=== PATIENT | female | born 1950 | race Caucasian/White ===

== ENCOUNTER → 2018-04-24 | Outpatient (CLI) | payer OTHER ==
[2018-04-24 11:11] LABS: BASOPHILS ABSOLUTE AUTO 0.05 K/mm3 (0.00-0.23); BASOPHILS PERCENT AUTO 1 % (0-2); EOSINOPHILS ABSOLUTE AUTO 0.29 K/mm3 (0.00-0.68); EOSINOPHILS PERCENT AUTO 5 % (0-6); Hematocrit 42.3 % (33.0-51.0); Hemoglobin 13.9 g/dL (11.5-16.0); IMMATURE GRAN ABSOLUTE AUTO 0.01 K/mm3 (0.00-0.10); IMMATURE GRAN PERCENT AUTO 0 % (0-1); LYMPHOCYTES ABSOLUTE AUTO 1.73 K/mm3 (0.84-5.20); LYMPHOCYTES PERCENT AUTO 27 % (21-46); MONOCYTES ABSOLUTE AUTO 0.61 K/mm3 (0.16-1.47); MONOCYTES PERCENT AUTO 10 % (4-13); Mean Corpuscular HGB 31.4 pg (26.0-34.0); Mean Corpuscular HGB Conc 32.9 g/dL (31.5-36.5); Mean Corpuscular Volume 96 fL (80-100); Mean Platelet Volume 8.5 fL (9.1-12.4); NEUTROPHILS ABSOLUTE AUTO 3.64 K/mm3 (1.96-9.15); NEUTROPHILS PERCENT AUTO 58 % (41-73); Platelet Count 362 K/mm3 (150-400); RDW Coefficient Variation 13.2 % (11.7-14.2); RDW Standard Deviation 47.6 fL (35.1-46.3); Red Blood Cell Count 4.43 M/mm3 (3.80-5.20); White Blood Cell Count 6.33 K/mm3 (4.00-11.30)
[2018-04-24 11:36] LABS: Alanine Aminotransfer (ALT/SGP 22 U/L (12-78); Albumin, Blood 3.7 g/dL (3.4-5.0); Alk Phos 74 U/L (50-136); Anion Gap 7 mmol/L (6-16); Aspartate Aminotrans (AST/SGOT 24 U/L (12-37); Bilirubin, Total 0.7 mg/dL (0.1-1.0); Blood Urea Nitrogen 13 mg/dL (8-24); Bun/Creatinine Ratio 15.9 (12.0-20.0); CHOL/HDL RATIO 3.3; CO2, Blood 28 mmol/L (21-32); Calcium, Blood 9.2 mg/dL (8.5-10.1); Chloride, Blood 106 mmol/L (98-108); Cholesterol 275 mg/dL (50-200); Creatinine, Blood 0.82 mg/dL (0.40-1.00); Globulin, Blood 3.7 g/dL (2.2-4.0); Glomerular Filtration Rate >60 (60-); Glucose, Blood 102 mg/dL (70-99); HDL Cholesterol 83 mg/dL (>39); Low Density Lipoprotein Chol 168 mg/dL (0-110); Potassium, Blood 4.6 mmol/L (3.5-5.5); Sodium, Blood 141 mmol/L (136-145); Total Protein, Blood 7.4 g/dL (6.4-8.2); Triglycerides 120 mg/dL (30-160); Very Low Density Lipoprot Chol 24 mg/dL (6-32)
== END | disposition home or self-care (01) ==
LOC: LAB 09:45 → LAB SHORT 09:45
PROVIDERS: Physician Assistant
DX: I10 Essential (primary) hypertension (principal)
CPT/HCPCS: 80053; 80061; 85025

== ENCOUNTER 2022-07-29 19:02 | Inpatient (IN) | payer OTHER ==
[~2022-07-29] VITALS: Ht 162.6 cm; Wt 52.5 kg
[2022-07-29 19:54] LABS: BASOPHILS ABSOLUTE AUTO 0.01 K/mm3 (0.00-0.23); BASOPHILS PERCENT AUTO 0 % (0-2); EOSINOPHILS ABSOLUTE AUTO 0.09 K/mm3 (0.00-0.68); EOSINOPHILS PERCENT AUTO 1 % (0-6); Hematocrit 44.5 % (33.0-51.0); Hemoglobin 14.1 g/dL (11.5-16.0); IMMATURE GRAN ABSOLUTE AUTO 0.05 K/mm3 (0.00-0.10); IMMATURE GRAN PERCENT AUTO 0 % (0-1); LYMPHOCYTES ABSOLUTE AUTO 0.37 K/mm3 (0.84-5.20); LYMPHOCYTES PERCENT AUTO 3 % (21-46); MONOCYTES ABSOLUTE AUTO 0.63 K/mm3 (0.16-1.47); MONOCYTES PERCENT AUTO 5 % (4-13); Mean Corpuscular HGB 28.8 pg (26.0-34.0); Mean Corpuscular HGB Conc 31.7 g/dL (31.5-36.5); Mean Corpuscular Volume 91 fL (80-100); Mean Platelet Volume 7.6 fL (9.1-12.4); NEUTROPHILS ABSOLUTE AUTO 11.18 K/mm3 (1.96-9.15); NEUTROPHILS PERCENT AUTO 91 % (41-73); Platelet Count 474 K/mm3 (150-400); RDW Standard Deviation 50.4 fL (35.1-46.3); White Blood Cell Count 12.33 K/mm3 (4.00-11.30)
[2022-07-29] MEDS ORDERED: CIPR500 PO (20:11)
[2022-07-29 20:12] LABS: Albumin, Blood 2.6 g/dL (3.4-5.0); Albumin/Globulin Ratio 0.9 (0.8-1.8); Bilirubin, Total 0.3 mg/dL (0.1-1.0); Bun/Creatinine Ratio 38.6 (12.0-20.0); Calcium, Blood 7.8 mg/dL (8.5-10.1); Creatinine, Blood 0.83 mg/dL (0.40-1.00); Potassium, Blood 3.8 mmol/L (3.5-5.5); Total Protein, Blood 5.6 g/dL (6.4-8.2)
--- NOTE | 2022-07-29 22:43 | NUR ---
CALLED TO GET REPORT FOR ER PT COMING TO RM 360. REPORT RECEIVED FROM LUKAS CRUZ RN AT 5129.
--- NOTE | 2022-07-29 23:00 | NUR ---
PT ARRIVED FROM ED VIA [facility] AT 2300. ASSISTANCE PROVIDED TRANSFERRING FROM [facility] TO [facility]. PT APPEARS TO BE A LITTLE UNSTEADY WALKING D/T BLE EDEMA. ON 2L VIA HI AT THIS TIME. PLEASANT AND COOPERATIVE. A/O. KNOWS LIMITATIONS. ORIENTED TO CALL LT SYSTEM, PT UNDERSTANDS TO USE CALL LT FOR NEEDS. DR VILLALOBOS SEE PT. WILL CONTINUE TO PROVIDE CARE T/O SHIFT.
--- NOTE | 2022-07-30 00:18 | NUR ---
SNACK GIVEN TO PT. CALL LT IN REACH.
--- NOTE | 2022-07-30 02:31 | NUR ---
PT RESTING QUIETLY. RESP EVEN ON 3L. CALL LT IN REACH.
--- NOTE | 2022-07-30 03:37 | NUR ---
PT RESTING QUIETLY. CALL LT IN REACH.
--- NOTE | 2022-07-30 04:00 | NUR ---
PT RESTING. CALL LT IN REACH. BED ALARM ON.
--- NOTE | 2022-07-30 04:44 | NUR ---
SHIFT SUMMARY: ED ADMIT AT 2300. A/O. ON 3L O2, BASELINE IS RA. SINUS RHYTHM IN THE 90'S ON TELE. NO COMPLAINTS OF CHEST PAIN. SOB GREATLY IMPROVED PER PT. ABLE TO TALK IN COMPLETE SENTENCES. NO NOTED SOB. MEDICATED FOR A HEADACHE X 1. IS A 1[place] TO [facility] [place] BEING UNSTEADY WHEN STANDING AND AMBULATING. PT UNDERSTANDS LIMITATIONS. BED ALARM HAS BEEN ON FOR PT SAFETY AND REMINDER TO USE CALL LT. WILL CONTINUE TO PROVIDE CARE UNTIL SHIFT REPORT TO ONCOMING NURSE.
--- NOTE | 2022-07-30 06:17 | NUR ---
RESTING WELL. CALL LT IN REACH.
[2022-07-30 06:56] LABS: BASOPHILS ABSOLUTE AUTO 0.01 K/mm3 (0.00-0.23); BASOPHILS PERCENT AUTO 0 % (0-2); EOSINOPHILS ABSOLUTE AUTO 0.03 K/mm3 (0.00-0.68); EOSINOPHILS PERCENT AUTO 0 % (0-6); Hematocrit 43.5 % (33.0-51.0); Hemoglobin 13.8 g/dL (11.5-16.0); IMMATURE GRAN ABSOLUTE AUTO 0.05 K/mm3 (0.00-0.10); IMMATURE GRAN PERCENT AUTO 1 % (0-1); LYMPHOCYTES ABSOLUTE AUTO 0.76 K/mm3 (0.84-5.20); LYMPHOCYTES PERCENT AUTO 7 % (21-46); MONOCYTES ABSOLUTE AUTO 1.05 K/mm3 (0.16-1.47); MONOCYTES PERCENT AUTO 10 % (4-13); Mean Corpuscular HGB 28.8 pg (26.0-34.0); Mean Corpuscular HGB Conc 31.7 g/dL (31.5-36.5); Mean Corpuscular Volume 91 fL (80-100); NEUTROPHILS ABSOLUTE AUTO 8.89 K/mm3 (1.96-9.15); NEUTROPHILS PERCENT AUTO 82 % (41-73); Platelet Count 470 K/mm3 (150-400); RDW Coefficient Variation 14.9 % (11.7-14.2); RDW Standard Deviation 49.7 fL (35.1-46.3); White Blood Cell Count 10.79 K/mm3 (4.00-11.30)
[2022-07-30 07:20] LABS: Albumin, Blood 2.4 g/dL (3.4-5.0); Albumin/Globulin Ratio 0.8 (0.8-1.8); Bilirubin, Total 0.4 mg/dL (0.1-1.0); Bun/Creatinine Ratio 38.9 (12.0-20.0); Calcium, Blood 7.6 mg/dL (8.5-10.1); Creatinine, Blood 0.8 mg/dL (0.40-1.00); Globulin, Blood 2.9 g/dL (2.2-4.0); Potassium, Blood 3.8 mmol/L (3.5-5.5); Total Protein, Blood 5.3 g/dL (6.4-8.2)
[2022-07-30 07:35] LABS: CPK Creatine Kinase 126 U/L (26-193)
[2022-07-30 15:12] LABS: CPK Creatine Kinase 130 U/L (26-193)
--- NOTE | 2022-07-30 17:31 | NUR ---
SHIFT SUMMARY NO ACUTE CHANGES DURING SHIFT. PT ALERT AND ORIENTED, CALLS APPROPRIATELY. PT REMAINS ON 3L NC, SPO2 >90%. PRN NEBS ORDERED FOR SOB, ADMINSITERED BY RT WITH POSITIVE RESULTS. PT TRANSITIONED TO PO LASIX AND STEROIDS. ECHO COMPLETED. WILL CONTINUE TO MONITOR. CALL LIGHT WITHIN REACH.
--- NOTE | 2022-07-31 04:50 | NUR ---
SHIFT SUMMARY PATIENT DENIES PAIN, NAUSEA, AND SHORTNESS OF BREATH. PATIENT IS A SBA TO THE BATHROOM. PATIENT IS A&O X4, CALLS APPROPRIATELY. PATIENT ON 3L VIA N/C. MAINTAINING SATS ABOVE 90%. PATIENT SLEPT MOST OF SHIFT. PATIENT IS VERY PLEASANT AND COOPERATIVE WITH CARE.
[2022-07-31 04:51] LABS: BASOPHILS ABSOLUTE AUTO 0.02 K/mm3 (0.00-0.23); BASOPHILS PERCENT AUTO 0 % (0-2); EOSINOPHILS ABSOLUTE AUTO 0.45 K/mm3 (0.00-0.68); EOSINOPHILS PERCENT AUTO 4 % (0-6); Hematocrit 43.8 % (33.0-51.0); Hemoglobin 13.5 g/dL (11.5-16.0); IMMATURE GRAN ABSOLUTE AUTO 0.03 K/mm3 (0.00-0.10); IMMATURE GRAN PERCENT AUTO 0 % (0-1); LYMPHOCYTES ABSOLUTE AUTO 1.24 K/mm3 (0.84-5.20); LYMPHOCYTES PERCENT AUTO 11 % (21-46); MONOCYTES ABSOLUTE AUTO 1.43 K/mm3 (0.16-1.47); MONOCYTES PERCENT AUTO 13 % (4-13); Mean Corpuscular HGB 28.5 pg (26.0-34.0); Mean Corpuscular HGB Conc 30.8 g/dL (31.5-36.5); Mean Corpuscular Volume 93 fL (80-100); Mean Platelet Volume 7.9 fL (9.1-12.4); NEUTROPHILS ABSOLUTE AUTO 7.85 K/mm3 (1.96-9.15); NEUTROPHILS PERCENT AUTO 71 % (41-73); Platelet Count 403 K/mm3 (150-400); RDW Coefficient Variation 14.8 % (11.7-14.2); RDW Standard Deviation 50.8 fL (35.1-46.3); Red Blood Cell Count 4.73 M/mm3 (3.80-5.20); White Blood Cell Count 11.02 K/mm3 (4.00-11.30)
[2022-07-31 05:07] LABS: Calcium, Blood 7.7 mg/dL (8.5-10.1); Creatinine, Blood 0.8 mg/dL (0.40-1.00); Potassium, Blood 3.9 mmol/L (3.5-5.5)
--- NOTE | 2022-07-31 17:54 | NUR ---
SHIFT SUMMARY NO ACUTE CHANGES DURING SHIFT. PT ALERT AND ORIENTED, CALLS APPROPRIATELY. PT REMAINS ON 3L NC. UP OOB TO AMBULATE HALLS TODAY PER MD ORDER, PT REMAINS SBA. PT ON PO DIURETICS. WILL CONTINUE TO MONITOR. CALL LIGHT WITHIN REACH.
--- NOTE | 2022-08-01 04:25 | NUR ---
AGRICULTURAL PRODUCE PACKER SUMMARY BP WAS ELEVATED AT SHIFT COMMENCE, BUT HAS TRENDED DOWN TO WNL. OTHERWISE VSS. UP TO BATHROOM WITH ASSIST A FEW TIMES. OTHERWISE HAS BEEN RESTING QUIETLY WITH FEW INTERRUPTIONS. CALL LIGHT IN REACH. O2 PER NC. MED TELE SR. EDEMA REMAINS OF BLE. WILL CONTINUE TO MONITOR.
[2022-08-01 10:00] LABS: Bun/Creatinine Ratio 37.7 (12.0-20.0); Calcium, Blood 8.4 mg/dL (8.5-10.1); Creatinine, Blood 0.58 mg/dL (0.40-1.00); Potassium, Blood 3.6 mmol/L (3.5-5.5)
[2022-08-01] MEDS ORDERED: Amlodipine Bes2.5 MG PO (13:27)
[2022-08-01] MEDS ORDERED: BUME1 PO (13:28)
[2022-08-01] MEDS ORDERED: FLUTICASONE-SA1 EAC1 INH (13:29)
[2022-08-01] MEDS ORDERED: METO25 PO (13:31)
[2022-08-01] MEDS ORDERED: PRED20 PO (13:38)
[2022-08-01] MEDS ORDERED: Chantix1 MG PO (13:40)
[2022-08-01] MEDS ORDERED: ALBU90OI INH (13:42)
[2022-08-01] MEDS ORDERED: POTA10T PO (13:42)
--- NOTE | 2022-08-01 17:11 | NUR ---
PATIENT DISCHARGED TO HER PARENT'S HOME ACCOMPANIED BY HER SPOUSE/SO. IV SALINE LOCK AND TELEMETRY REMOVED WITHOUT INCIDENT. VERBALIZED UNDERSTANDING OF D/C INSTRUCTIONS. MATTHEW DELIVERED PORTABLE O2 TANK TO THE ROOM AND CONCENTRATOR TO BE DELIVERED TO HER PARENT'S HOME, WHERE SHE WILL BE STAYING UNTIL HER HOME IS "READY." OFF UNIT VIA W/C AT 1625. NO BELONGINGS LEFT BEHIND IN ROOM.
== END 2022-08-01 16:25 | disposition home health service (06) | DRG 291 ==
LOC: ER 19:02 → MEDS 22:57
PROVIDERS: Emergency Medicine; Internal Medicine; ADMIT Internal Medicine
DX: I50.31 Acute diastolic (congestive) heart failure (principal); J96.01 Acute respiratory failure with hypoxia; R64 Cachexia; J44.1 Chronic obstructive pulmonary disease with (acute) exacerbation; E87.1 Hypo-osmolality and hyponatremia; F17.210 Nicotine dependence, cigarettes, uncomplicated; I34.0 Nonrheumatic mitral (valve) insufficiency; I27.20 Pulmonary hypertension, unspecified; Z79.2 Long term (current) use of antibiotics
CPT/HCPCS: 36415; 71045; 80048; 80053; 82550; 83880; 84484; 85025; 93005; 93010; 93306; 94640; 94664; 94760; 94761; 96374; 99285-25; A9270; J1650; J1940; J7512

== ENCOUNTER → 2023-05-25 | Outpatient (CLI) | payer OTHER ==
[~2023-05-25] MED LIST: ALBU90OI INH; Amlodipine Bes2.5 MG PO; BUME1 PO; CIPR500 PO; Chantix1 MG PO; FLUTICASONE-SA1 EAC1 INH; METO25 PO; POTA10T PO; PRED20 PO
[2023-05-25 19:30] LABS: BASOPHILS ABSOLUTE AUTO 0.06 K/mm3 (0.00-0.23); BASOPHILS PERCENT AUTO 1 % (0-2); EOSINOPHILS ABSOLUTE AUTO 0.28 K/mm3 (0.00-0.68); EOSINOPHILS PERCENT AUTO 4 % (0-6); Hematocrit 43.8 % (33.0-51.0); Hemoglobin 14.3 g/dL (11.5-16.0); IMMATURE GRAN ABSOLUTE AUTO 0.02 K/mm3 (0.00-0.10); IMMATURE GRAN PERCENT AUTO 0 % (0-1); LYMPHOCYTES PERCENT AUTO 18 % (21-46); MONOCYTES ABSOLUTE AUTO 0.65 K/mm3 (0.16-1.47); MONOCYTES PERCENT AUTO 8 % (4-13); Mean Corpuscular HGB 30.2 pg (26.0-34.0); Mean Corpuscular HGB Conc 32.6 g/dL (31.5-36.5); Mean Corpuscular Volume 93 fL (80-100); Mean Platelet Volume 9.2 fL (9.1-12.4); NEUTROPHILS ABSOLUTE AUTO 5.36 K/mm3 (1.96-9.15); NEUTROPHILS PERCENT AUTO 69 % (41-73); Platelet Count 362 K/mm3 (150-400); RDW Coefficient Variation 13.7 % (11.7-14.2); RDW Standard Deviation 46.9 fL (35.1-46.3); Red Blood Cell Count 4.73 M/mm3 (3.80-5.20); White Blood Cell Count 7.77 K/mm3 (4.00-11.30)
[2023-05-25 19:58] LABS: Thyroxine (T4) 11.8 ug/dL (4.8-13.9)
[2023-05-25 20:05] LABS: Albumin, Blood 4.1 g/dL (3.4-5.0); Bilirubin, Total 0.5 mg/dL (0.1-1.0); Bun/Creatinine Ratio 22.8 (12.0-20.0); Calcium, Blood 9.8 mg/dL (8.5-10.1); Creatinine, Blood 0.92 mg/dL (0.40-1.00); Potassium, Blood 4.4 mmol/L (3.5-5.5); Thyroid Stimulating Hormone 2.45 uIU/mL (0.360-4.800); Total Protein, Blood 8.1 g/dL (6.4-8.2)
== END | disposition home or self-care (01) ==
LOC: LAB SHORT 15:40 → LAB 15:40
PROVIDERS: Family Medicine
DX: E11.9 Type 2 diabetes mellitus without complications (principal); E78.2 Mixed hyperlipidemia; I10 Essential (primary) hypertension
CPT/HCPCS: 80053; 84436; 84443; 85025

== ENCOUNTER 2024-05-15 17:42 | Inpatient (IN) | payer OTHER ==
[~2024-05-15] VITALS: Ht 170.2 cm; Wt 42.8 kg
[2024-05-15] MEDS ORDERED: MethylPREDNISolone Sod Succ 125 MG Vial IV ONE (18:05)
[2024-05-15] MEDS ORDERED: Ipratropium/Albuterol SulF 2.5-0.5MG/3 ML Amp INH ONE (18:05)
[2024-05-15 18:07] LABS: Bicarbonate Venous 28.9 mmol/L (24.0-30.0); PCO2 Venous 60.6 mmHg (38-42); pH Blood Venous 7.34 (7.34-7.37)
[2024-05-15 18:11] LABS: Hematocrit 41.3 % (33.0-51.0); Mean Corpuscular HGB 30.3 pg (26.0-34.0); Mean Corpuscular HGB Conc 31.5 g/dL (31.5-36.5); Mean Corpuscular Volume 96 fL (80-100); Mean Platelet Volume 8.8 fL (9.1-12.4); Platelet Count 261 K/mm3 (150-400); RDW Coefficient Variation 14.7 % (11.7-14.2); RDW Standard Deviation 51.7 fL (35.1-46.3); Red Blood Cell Count 4.29 M/mm3 (3.80-5.20); White Blood Cell Count 16.36 K/mm3 (4.00-11.30)
[2024-05-15 18:33] LABS: Alanine Aminotransfer (ALT/SGP 20 U/L (12-78); Albumin, Blood 2.4 g/dL (3.4-5.0); Albumin/Globulin Ratio 0.6 (0.8-1.8); Alk Phos 79 U/L (50-136); Anion Gap 12 mmol/L (3-11); Aspartate Aminotrans (AST/SGOT 32 U/L (12-37); Bilirubin, Total 0.6 mg/dL (0.1-1.0); Blood Urea Nitrogen 43 mg/dL (8-24); Bun/Creatinine Ratio 41.7 (12.0-20.0); CO2, Blood 32 mmol/L (21-32); Calcium, Blood 8.8 mg/dL (8.5-10.1); Chloride, Blood 89 mmol/L (98-108); Creatinine, Blood 1.03 mg/dL (0.40-1.00); Globulin, Blood 4.3 g/dL (2.2-4.0); Glomerular Filtration Rate 58 (60-); Glucose, Blood 67 mg/dL (70-99); Potassium, Blood 5.5 mmol/L (3.5-5.5); Sodium, Blood 127 mmol/L (136-145); Total Protein, Blood 6.7 g/dL (6.4-8.2)
[2024-05-15 18:34] LABS: BAND PERCENT MAN 33 % (0-8); BASOPHILS PERCENT MAN 0 % (0-2); EOSINOPHILS PERCENT MAN 0 % (0-6); LYMPHOCYTES ABSOLUTE MAN 0.32 K/mm3 (0.84-5.20); LYMPHOCYTES PERCENT MAN 2 % (21-46); METAMYELOCYTE ABSOLUTE MAN 0.98 K/mm3 (0.00-0.00); METAMYELOCYTE PERCENT MAN 6 % (0-0); MONOCYTES ABSOLUTE MAN 1.47 K/mm3 (0.16-1.47); MONOCYTES PERCENT MAN 9 % (4-13); NEUTROPHILS ABSOLUTE MAN 13.57 K/mm3 (1.96-9.15); SEG NEUTROPHILS PERCENT MAN 50 % (41-73); TOTAL CELLS COUNTED 100
[2024-05-15] MEDS ORDERED: PAXLOVID 150-11 EAC1 (18:35)
[2024-05-15] MEDS ORDERED: Amlodipine Bes2.5 MG (18:37)
[2024-05-15] MEDS ORDERED: Remdesivir (EUA) 200 MG in NS 250 ML IV ONE (18:45)
[2024-05-15] MEDS ORDERED: Albuterol 2.5 MG/3 ML VIAL INH SCH (18:55)
[2024-05-15] MEDS ORDERED: Acetaminophen 325 MG TABLET PO PRN (19:45)
[2024-05-15] MEDS ORDERED: Albuterol 2.5 MG/3 ML VIAL INH PRN (19:50)
[2024-05-15] MEDS ORDERED: Ondansetron HCl 2 MG / ML 2ML Vial IV PRN (19:50)
[2024-05-15] MEDS ORDERED: Ipratropium/Albuterol SulF 2.5-0.5MG/3 ML Amp INH SCH (19:50)
[2024-05-15] MEDS ORDERED: NS 1,000 ML IV SCH (19:50)
[2024-05-15] MEDS ORDERED: Azithromycin 500 MG in NS 250 ML IV SCH (20:00)
[2024-05-15 22:36] VITALS: BP 118/67
[2024-05-15 23:44] VITALS: BP 129/71
[2024-05-15 23:44] LABS: Bicarbonate Venous 25.1 mmol/L (24.0-30.0); PCO2 Venous 89.8 mmHg (38-42); pH Blood Venous 7.17 (7.34-7.37)
[2024-05-15] MEDS ORDERED: BUDESONIDE1 MG/2 M1 INH (23:51)
[2024-05-16] VITALS (67 sets, daily range): BP systolic 104–167; BP diastolic 64–131
--- NOTE | 2024-05-16 00:05 | NUR ---
ARRIVAL TO PCU AFTER RECEIVING REPORT FROM ED RN, PATIENT TRANSFERRED TO PCU AT APPROX 2230. PATIENT TRANSFERRED TO BED VIA SLIDER SHEET. PATIENT ALERT AND ORIENTED X4. COMMUNICATING NEEDS EFFECTIVELY. CAN BE FORGETFUL - ESPECIALLY REGARDING HX. DIFFICULTY RECALLING EVENTS IN ED. DAUGHTER AT BEDSIDE. TELEMETRY SHOWING SINUS BBB 80s. BP STABLE. DENIES CHEST PAIN, PRESSURE. ARRIVED ON BIPAP 12/10 50%. TOLERATING WELL, SATs >90%. RR 20s-30s. REQUESTING BREAK FROM BIPAP TO EAT. PLACED ON 7L VIA HI FLOW NC, SATs 92-94%. TOLERATED SHORT BREAK FROM BIPAP TO EAT A SNACK AND ANSWER ADMIT INFORMATION. REPORTS THAT SHE IS AMBULATORY AT BASELINE, BEDREST AT THIS TIME D/T OXYGEN DEMAND. PUREWICK AND ATTENDS PLACED. MEPIPLEX DRESSING PLACED OVER BONY COCCYX TO PREVENT SKIN BREAKDOWN. REPEAT VBG OBTAINED WHILE THIS RN ON BREAK. CRITICAL PH 7.17 - HUSAM GIFFORD RN NOTIFIED MD. THIS RN TO BEDSIDE. PATIENT ON BIPAP 12/10 50%. RT TO BEDSIDE TO ADJUST SETTINGS. PATIENT INCREASINGLY LETHARGIC, TACHYPNEIC, RR 30s-40s. SATs >90%. RT CODEY EXPRESSING CONCERNS FOR MANAGING RESPIRATORY STATUS ON BIPAP. INCREASED SECRETIONS NOTED. MD NIX CONTACTED. RECEIVED ORDER FOR ICU TRANSFER. DAUGHTER AT BEDSIDE - USER EXPERIENCE TEAM LEAD LAURA PROVIDED UPDATE. PATIENT EXPRESSING DESIRE TO REMAIN FULL CODE. REPORT GIVEN TO REGASIFICATION PLANT OPERATOR. MD NIX TO BEDSIDE TO ASSESS PATIENT. RECEIVED ORDER FOR REPEAT VBG AT 0300 AND FOR SCOPOLAMINE PATCH TO MANAGE SECRETIONS. PATIENT TRANSFERRED TO ICU AT APPROX 0030.
[2024-05-16] MEDS ORDERED: Scopolamine Hydrobromide Patch TD SCH (00:25)
--- NOTE | 2024-05-16 01:07 | NUR ---
TRANSFER TO ICU PT TRANSFERED TO ICU DUE TO INCREASE IN O2 DEMANDS AND POOR VBG RESULTS. SHE IS A/O X4 BUT STATES THAT SHE IS "TIRED". SHE IN ON BIPAP WITH SETTINGS 16/7, FIO2 40%, RR MID TO HIGH 20'S, AND Vt LABILE; WHEN STIMULATED Vt IS 400-1000, WHILE RESTINGS RANGES FROM 50-300'S, SPO2 LABILE FROM 90-95%. GARCIA PLACED FOR CRITICAL I&O'S. DAUGHTER JEROMY AT BEDSIDE.
[2024-05-16 01:23] LABS: Bilirubin, Urine Neg (Neg); Blood, Urine Neg (Neg); Glucose Qualitative, Urine Neg (Neg); Ketones, Urine Neg (Neg); Leukocyte Esterase, Urine Neg (Neg); Nitrite, Urine Neg (Neg); Protein, Urine 3+ (Neg); Specific Gravity, Urine 1.025 (1.003-1.022); Urobilinogen, Urine NORM (Normal)
[2024-05-16 01:28] LABS: Appearance, Urine Clear (Clear); Color, Urine Yellow (P-Yellow)
[2024-05-16 01:29] LABS: Amorphous Light (0-Heavy); Bacteria Few /hpf; Hyaline Casts 0-2 /lpf (0-2); Red Blood Cells, Urine 0-2 /hpf (0-2); Squamous Epithelial Cells Few /hpf (Few); White Blood Cells, Urine 0-2 /hpf (0-5)
[2024-05-16 01:45] LABS: PCO2 Arterial 86.5 mmHg (35-45); PO2 Arterial 78.8 mmHg (80-100); pH Blood Arterial 7.18 (7.35-7.45)
--- NOTE | 2024-05-16 02:00 | NUR ---
UPDATE CALL MADE TO DR NIX REGARDING DRECREASE IN Vt WHILE RESTING FOLLOWED BY DESATING TO THE MID 80'S. ABG OBTAINED AND BIPAP SETTINGS CHANGED AFTERWARDS. DR NIX AT BEDSIDE TO EVAL. WILL FOLLOW UP WITH VBG AND MORNING LABS AT 0400.
[2024-05-16 04:07] LABS: Hematocrit 42.3 % (33.0-51.0); Hemoglobin 12.9 g/dL (11.5-16.0); Mean Corpuscular HGB 30.1 pg (26.0-34.0); Mean Corpuscular HGB Conc 30.5 g/dL (31.5-36.5); Mean Corpuscular Volume 99 fL (80-100); Mean Platelet Volume 8.9 fL (9.1-12.4); Platelet Count 259 K/mm3 (150-400); RDW Coefficient Variation 14.8 % (11.7-14.2); RDW Standard Deviation 53.9 fL (35.1-46.3); Red Blood Cell Count 4.29 M/mm3 (3.80-5.20); White Blood Cell Count 12.72 K/mm3 (4.00-11.30)
[2024-05-16 04:11] LABS: Base Excess Venous 4.5 mmol/L; Bicarbonate Venous 25.7 mmol/L (24.0-30.0); pH Blood Venous 7.23 (7.34-7.37)
[2024-05-16 04:23] LABS: Bun/Creatinine Ratio 38.6 (12.0-20.0); Calcium, Blood 8.5 mg/dL (8.5-10.1); Creatinine, Blood 1.45 mg/dL (0.40-1.00); Potassium, Blood 4.9 mmol/L (3.5-5.5)
--- NOTE | 2024-05-16 06:31 | NUR ---
END OF SHIFT SUMMARY NO CHANGES SINCE LAST NOTE; SHE WAS ABLE TO SLEEP FOR A FEW HOURS. CONT TO BE ORIENTED X4 AND APPROPRIATLY INTERACTING WITH STAFF. BIPAP SETTINGS 24/8, FIO2 45%, AND BACK UP RATE OF 26, RR MID 20'S; TIGHT LS T/O ALL FREEMAN. AFEBRILE. HR 70'S. SBP 110-150'S. GARCIA IN PLACE WITH SMALL AMOUNT OF OUTPUT. NS INFUSING AT 75ML/HR. DAUGHTER JEROMY AT BEDSIDE AND HELPFUL. WILL REPORT TO AM RN WHEN AVAILABLE.
[2024-05-16] MEDS ORDERED: AmLODIPine Besylate 5 MG Tab PO SCH (09:00)
[2024-05-16] MEDS ORDERED: Enoxaparin 40 MG/0.4 ML SYR SC SCH (09:00)
[2024-05-16] MEDS ORDERED: NIRMATRELVIR PO SCH (11:02)
[2024-05-16] MEDS ORDERED: RITONAVIR 100 MG PO SCH (11:05)
[2024-05-16] MEDS ORDERED: Nicotine 21 MG PATCH TOP SCH (11:40)
[2024-05-16] MEDS ORDERED: Remdesivir (EUA) 100 MG in NS 250 ML IV SCH (12:00)
--- NOTE | 2024-05-16 13:24 | NUR ---
Spiritual care visit conducted. I talk with patient's dtr, Geoavnna, outside of the patient's room. Geovanna explains about the complexities of her mother's health and how the virus has made things very serious. She states that she is worried but also she remains hopefully optimistic. I later visit the patient in her room and she explains about her inability to talk but she welcomes prayer which I gladly provided. Both patient and Geovanna showed signs of greater peace. I will continue to remain available.
[2024-05-16] MEDS ORDERED: MethylPREDNISolone Sod Succ 125 MG Vial IV SCH ×2 (21:00)
[2024-05-17] VITALS (33 sets, daily range): BP systolic 111–178; BP diastolic 70–106
[2024-05-17 03:18] LABS: Hematocrit 37.3 % (33.0-51.0); Hemoglobin 12.1 g/dL (11.5-16.0); Mean Corpuscular HGB Conc 32.4 g/dL (31.5-36.5); Mean Platelet Volume 8.8 fL (9.1-12.4); Platelet Count 264 K/mm3 (150-400); RDW Coefficient Variation 14.7 % (11.7-14.2); RDW Standard Deviation 50.4 fL (35.1-46.3); Red Blood Cell Count 4.03 M/mm3 (3.80-5.20)
[2024-05-17] MEDS ORDERED: HydrALAZINE HCl 20 MG / ML 1ML Vial IV PRN (03:20)
[2024-05-17 03:21] LABS: Mean Corpuscular Volume 93 fL (80-100)
[2024-05-17 03:40] LABS: Bun/Creatinine Ratio 53.1 (12.0-20.0); Calcium, Blood 8.4 mg/dL (8.5-10.1); Creatinine, Blood 1.28 mg/dL (0.40-1.00); Magnesium, Blood 2.2 mg/dL (1.6-2.4); Phosphorus, Blood 3.7 mg/dL (2.5-4.9); Potassium, Blood 5.2 mmol/L (3.5-5.5)
[2024-05-17 03:43] LABS: BAND PERCENT MAN 17 % (0-8); BASOPHILS PERCENT MAN 0 % (0-2); EOSINOPHILS ABSOLUTE MAN 0.17 K/mm3 (0.00-0.68); EOSINOPHILS PERCENT MAN 2 % (0-6); LYMPHOCYTES ABSOLUTE MAN 0.25 K/mm3 (0.84-5.20); LYMPHOCYTES PERCENT MAN 3 % (21-46); METAMYELOCYTE ABSOLUTE MAN 0.34 K/mm3 (0.00-0.00); METAMYELOCYTE PERCENT MAN 4 % (0-0); MONOCYTES ABSOLUTE MAN 0.42 K/mm3 (0.16-1.47); MONOCYTES PERCENT MAN 5 % (4-13); NEUTROPHILS ABSOLUTE MAN 7.31 K/mm3 (1.96-9.15); SEG NEUTROPHILS PERCENT MAN 69 % (41-73); TOTAL CELLS COUNTED 100
--- NOTE | 2024-05-17 06:29 | NUR ---
PATIENT MENTATION IS IMPROVING. MORE ALERT. A&O X4. PATIENT HAS BEEN SINUS WITH A BBB. PATIETN DID HAVE SOME HYPERTENSION OVERNIGHT DUE TO PATIENT NOT BEEN ABLE TO TAKE PO BP MEDS EARLY IN THE DAY SHIFT DUE TO RISK OF ASPIRATION. PRN NOW ORDERED FOR SBP >160, ONE DOSE GIVEN OVERNIGHT ALONG WITH DOSE OF NORVASC. SBP HAVE BEEN 140-160S. PATIENT IS ON BIPAP WITH SETTING OF 22/8 WITH FIO2 OF 35%. PATIENT TOLERATED THIS WELL OVERNIGHT. URINE OUTPUT DECREASED WITH AN OUT OF 30-40CC AN HOUR. PATIENT EXPRESSED CONCERNS OF NUTRITION. EXPLAIN TO PATIENT THE CONCERNS OF HER RESPIRATORY STATUS. HOPEFULLY WE CAN GET PATIENT SOME FOOD TODAY.
[2024-05-17] MEDS ORDERED: Enoxaparin 30 MG/0.3 ML SYR SC SCH (09:00)
--- NOTE | 2024-05-17 12:25 | NUR ---
REASSESSMENT PT HAS BEEN ALERT AND ORIENTED THROUGHOUT THE MORNING. PT SWITCHED TO AIRVO THIS MORNING AND PT TOLERATED FOR ABOUT 90 MINUTES BEFORE BEING SWITCHED BACK TO BIPAP IN ORDER TO WORK WITH PHYSICAL THERAPY. PT BACK ON AIR VO NOW AND IS TOLERATING IT WELL. WORK OF BREATHING IS EASY ENOUGH THAT SHE HAS BEEN ABLE TO SIP ON ENSURE DRINKS WITHOUT ANY SIGNS OF ASPIRATION. LUNGS STILL HAVE SOME EXPIRATORY WHEEZES. SR IN THE 80S, SBP IN THE 140S. GARCIA DRAINING CL YELLOW URINE. PT DAUGHTERS HAVE BEEN AT THE BEDSIDE AND WERE UPDATED BY DR. DOUGHERTY ON HIS ROUNDS.
[2024-05-17] MEDS ORDERED: Multivitamins 1 Tab PO SCH (14:20)
[2024-05-17] MEDS ORDERED: Thiamine HCl 100 MG Tab PO SCH (14:20)
--- NOTE | 2024-05-17 16:02 | NUR ---
Spiritual care visit conducted. Patient is lying in bed and alert. She tells me about her family unit complications, her sister being housed at [facility], and her strong belief in God. I provided therapeutic listening and prayer. Patient is voices gratefulness for the spiritual care visit and displays evidence of increased hope and peace.
[2024-05-17] MEDS ORDERED: Nystatin 100,000 Unit/ML Susp 5 ML UDC SS SCH (17:00)
--- NOTE | 2024-05-17 17:19 | NUR ---
SHIFT SUMMARY PT HAS REMAINED ON THE AIRVO THROUGHOUT THE AFTERNOON AND HAS BEEN ALERT AND ORIENTED. HER LUNGS STILL HAVE AN EXPIRATORY WHEEZE. PT DENIES DYSPNEA. PT GIVEN FULL LIQUID TRAY FOR DINNER AND IS EATING WITHOUT DIFFICULTY. PT IS FOLLOWING DIRECTION TO EAT SLOWLY AND PAUSE IF SHE FEELS SHORT OF BREATH. CONTINUES IN SR, SBP IN THE 140S. GARCIA DRAINING CL YELLOW URINE. PT'S AMY STAYED IN ROOM WITH PT FOR MOST OF THE DAY AND WAS UPDATED THROUGHOUT.
[2024-05-18] VITALS (11 sets, daily range): BP systolic 117–156; BP diastolic 81–94
[2024-05-18 03:42] LABS: Hematocrit 34.2 % (33.0-51.0); Hemoglobin 11.1 g/dL (11.5-16.0); Mean Corpuscular HGB 29.9 pg (26.0-34.0); Mean Corpuscular HGB Conc 32.5 g/dL (31.5-36.5); Mean Corpuscular Volume 92 fL (80-100); Mean Platelet Volume 8.9 fL (9.1-12.4); Platelet Count 261 K/mm3 (150-400); RDW Standard Deviation 51.2 fL (35.1-46.3); Red Blood Cell Count 3.71 M/mm3 (3.80-5.20)
[2024-05-18 04:02] LABS: Bun/Creatinine Ratio 61.5 (12.0-20.0); Calcium, Blood 8.1 mg/dL (8.5-10.1); Creatinine, Blood 0.78 mg/dL (0.40-1.00); Phosphorus, Blood 2.4 mg/dL (2.5-4.9)
[2024-05-18 04:11] LABS: BASOPHILS PERCENT MAN 0 % (0-2); EOSINOPHILS PERCENT MAN 0 % (0-6); PLASMA CELL ABSOLUTE MAN 0.04 K/mm3 (0.00-0.00); PLASMA CELLS PERCENT MAN 1 % (0-0); SEG NEUTROPHILS PERCENT MAN 66 % (41-73); TOTAL CELLS COUNTED 100
[2024-05-18 04:27] LABS: BAND PERCENT MAN 21 % (0-8); LYMPHOCYTES % ATYPICAL MANUAL 2 % (0-0); LYMPHOCYTES ABSOLUTE MAN 0.25 K/mm3 (0.84-5.20); LYMPHOCYTES PERCENT MAN 4 % (21-46); METAMYELOCYTE ABSOLUTE MAN 0.04 K/mm3 (0.00-0.00); METAMYELOCYTE PERCENT MAN 1 % (0-0); MONOCYTES ABSOLUTE MAN 0.21 K/mm3 (0.16-1.47); MONOCYTES PERCENT MAN 5 % (4-13); NEUTROPHILS ABSOLUTE MAN 3.74 K/mm3 (1.96-9.15)
--- NOTE | 2024-05-18 06:11 | NUR ---
SHIFT SUMMARY: NO ACUTE CHANGES OVERNIGHT; VSS THROUGHOUT THE SHIFT. PT ON BIPAP FOR MAJORITY OF THE NIGHT WITH SETTINGS 18/10, 35 %; SWITCHED OVER TO AIRVO EARLY THIS MORNING WITH SETTINGS 60L 40%. PT DENIES SOB, LUNG CLEAR WITH DIM BASES AND SPO2 94. SR WITH HR 80'S, SBP 130'S AND PT DENIES CHEST PAIN AT THIS TIME. GARCIA PATENT AND DRAINING TO GRAVITY. PT TOLERATING PO INTAKE AT THIS TIME. PT WAS ABLE TO SLEEP FOR MAJORITY OF SHIFT. BED LOWERED, CALL LIGHT IN REACH.
--- NOTE | 2024-05-18 10:41 | NUR ---
Spiritual Care Visit. Pt. is awake in bed and welcomes my visit. Facilitated a medical update and this pouch maker verbalized that I an visiting at the request of Ring Conductor Tim. Pt. is pleasant and verbalized that "she could use all the prayers we could throw her way." Prayed with Pt. Pt. verbalized gratitdue for the spiritual care visit.
--- NOTE | 2024-05-18 14:07 | NUR ---
ARRIVAL TO PCU PT ARRIVED TO PCU AT 1345 VIA HOSPITAL BED. PT ON BIPAP FOR TRNAFER AND SWITCHED TO AIRVO BY RT ONCE SETTLED IN ROOM. PT SLID FROM ICU BED TO PCU BED VIA 3 STAFF MEMBERS. MEPILEX REPLACED WHILE ASSESSING SKIN, MEPILEX IN PLACE JUST FOR BARRIER PT IS CACHECTIC. PT A/OX4 AND COOPERATIVE. PT ORIENTED TO ROOM.
--- NOTE | 2024-05-18 17:45 | NUR ---
SHIFT SUMMARY PT A/OX4 SINCE ARRIVAL TO UNIT. PT REMAINS ON AIRVO 60L 40% WITH SATS IN THE LOW 90'S. NO REPORT OF SOB. RR IN LOW 20'S. PULSE STABLE IN THE 80-90'S. STABLE BP'S. NO REPORT OF CHEST PAIN/PRESSURE SINCE ARRIVING TO UNIT. PT DIET ADVANCED TO REG DIET, PT TOLERATING WELL.
[2024-05-19] VITALS (7 sets, daily range): BP systolic 122–148; BP diastolic 84–94
--- NOTE | 2024-05-19 02:50 | NUR ---
ASSUMED CARE OF PT AT 1900. PT AOX4 IN BED, UPPER SIDE RAILS UP, BRAKE ON, BED IN LOWEST POSITION. CALL LIGHT AND BEDSIDE TABLE IN REACH. PT TOLERATING HEATED HIGH FLOW O2 WELL. TELEMETRY AND PULSE OXIMETRY IN PLACE. GARCIA IN PLACE AND DRAINING WELL.
[2024-05-19 05:15] LABS: BASOPHILS PERCENT AUTO 0 % (0-2); EOSINOPHILS PERCENT AUTO 0 % (0-6); Hematocrit 37.4 % (33.0-51.0); Hemoglobin 11.7 g/dL (11.5-16.0); IMMATURE GRAN ABSOLUTE AUTO 0.02 K/mm3 (0.00-0.10); IMMATURE GRAN PERCENT AUTO 0 % (0-1); LYMPHOCYTES ABSOLUTE AUTO 0.15 K/mm3 (0.84-5.20); LYMPHOCYTES PERCENT AUTO 3 % (21-46); MONOCYTES ABSOLUTE AUTO 0.18 K/mm3 (0.16-1.47); MONOCYTES PERCENT AUTO 3 % (4-13); Mean Corpuscular HGB 29.5 pg (26.0-34.0); Mean Corpuscular HGB Conc 31.3 g/dL (31.5-36.5); Mean Corpuscular Volume 94 fL (80-100); Mean Platelet Volume 8.9 fL (9.1-12.4); NEUTROPHILS ABSOLUTE AUTO 5.16 K/mm3 (1.96-9.15); NEUTROPHILS PERCENT AUTO 94 % (41-73); Platelet Count 291 K/mm3 (150-400); RDW Coefficient Variation 14.6 % (11.7-14.2); RDW Standard Deviation 51.1 fL (35.1-46.3); Red Blood Cell Count 3.97 M/mm3 (3.80-5.20); White Blood Cell Count 5.51 K/mm3 (4.00-11.30)
[2024-05-19 05:41] LABS: Calcium, Blood 7.8 mg/dL (8.5-10.1); Creatinine, Blood 0.74 mg/dL (0.40-1.00); Magnesium, Blood 1.5 mg/dL (1.6-2.4); Phosphorus, Blood 2.3 mg/dL (2.5-4.9); Potassium, Blood 3.2 mmol/L (3.5-5.5)
[2024-05-19] MEDS ORDERED: Magnesium Sulf 2 GM/Water 50ML 50 ML IV ONE (07:40)
[2024-05-19] MEDS ORDERED: Potassium Phosphate Dibasic 15 MM in Dextrose 5% 250 ML IV STA (07:47)
[2024-05-19] MEDS ORDERED: Potassium Chloride 20 MEQ TabCR PO ONE (08:00)
--- NOTE | 2024-05-19 10:02 | NUR ---
am note this rn assumed care at 0700. vital signs stable. tele sinus rhythm 80s. spo2 >90% on airvo 60/40. patient is alert and oriented x4. neuro is intact. perrla. patient is able to make needs known and is able to use call light appropriately. patient denies pain, chest pain/pressure or shortness of breath. see shift assessment for further detials. md burgosan in to see patient and discussed plan of care. plan to continue current medication regimen, titrate oxygen, and to get out of bed and sit in the chair.
--- NOTE | 2024-05-19 17:32 | NUR ---
shift summary patient remains on arivo 60l 44%. md ludwig in to see the patient this afternoon and no changes to plan of care at this time. spo2 remains >90% on current arivo settings. patient sat in chair most of the day and is a standby assist. this rn had patient do sit to stands in the chair and marching at the chair and bedside. patient tolerated this well. no acute changes. plan of care remains up to date.
[2024-05-19] MEDS ORDERED: MethylPREDNISolone Sod Succ 125 MG Vial IV SCH (21:00)
--- NOTE | 2024-05-20 00:01 | NUR ---
PT DESATED TO 84% WHILE SLEEPING. PT ON AIRVO 59L 44%. UPON WAKING THE PT REPORTED NO ACUTE DISTRESS, PT APPEARED TO BE STABLE. PT REPOSITIONED AND HOB ELEVATED, ENCOURAGED COUGH AND DEEP BREATHING. O2 SAT IMPROVED TO 92%. PT THEN NEEDED TO URINATE AND ASSISTED TO BSC. PT BACK TO BED AND NOW SATING BETWEEN 88-90% ON SAME AIRVO SETTINGS. WILL CONTINUE TO MONITOR.
--- NOTE | 2024-05-20 02:18 | NUR ---
INFORMED BY TELEMETRY PT HAD ST ELEVATION IN LEADS II AND AVF. PT SLEEPING, AWOKE PT TO ASSESS NO C/O CP/INCREASED SOB OR WORK OF BREATHING. NO DIAPHORESIS, NUMBNESS/TINGLING OR ARM/JAW/BACK PAIN. CHANGED ELECTRODE STICKERS AND LEAD WIRES, WITHOUT MUCH CHANGE. CONTINUING TO MONITOR PT AT THIS TIME.
--- NOTE | 2024-05-20 04:02 | NUR ---
ST CHANGES NOTED ON TELE IN THREE LEADS AND EKG PERFORMED. EKG SHOWED CHANGES FROM PREVIOUS. DR. MARTINEZ CALLED, TROPONIN ORDERED. PT CONTINUES TO REMAIN STABLE AND DENY CHEST PAIN/INCREASED SOB. PT IS RESTING IN BED COMFORTABLY O2 REMAINS UNCHANGED SATING WELL 92%
[2024-05-20 04:18] LABS: BASOPHILS PERCENT AUTO 0 % (0-2); EOSINOPHILS PERCENT AUTO 0 % (0-6); Hematocrit 39.9 % (33.0-51.0); Hemoglobin 12.6 g/dL (11.5-16.0); IMMATURE GRAN ABSOLUTE AUTO 0.02 K/mm3 (0.00-0.10); IMMATURE GRAN PERCENT AUTO 0 % (0-1); LYMPHOCYTES ABSOLUTE AUTO 0.17 K/mm3 (0.84-5.20); LYMPHOCYTES PERCENT AUTO 2 % (21-46); MONOCYTES ABSOLUTE AUTO 0.33 K/mm3 (0.16-1.47); MONOCYTES PERCENT AUTO 5 % (4-13); Mean Corpuscular HGB 29.7 pg (26.0-34.0); Mean Corpuscular HGB Conc 31.6 g/dL (31.5-36.5); Mean Corpuscular Volume 94 fL (80-100); Mean Platelet Volume 8.9 fL (9.1-12.4); NEUTROPHILS ABSOLUTE AUTO 6.58 K/mm3 (1.96-9.15); NEUTROPHILS PERCENT AUTO 93 % (41-73); Platelet Count 330 K/mm3 (150-400); RDW Coefficient Variation 14.3 % (11.7-14.2); RDW Standard Deviation 49.5 fL (35.1-46.3); Red Blood Cell Count 4.24 M/mm3 (3.80-5.20)
[2024-05-20 04:39] LABS: Albumin, Blood 2.6 g/dL (3.4-5.0); Albumin/Globulin Ratio 0.7 (0.8-1.8); Bilirubin, Total 0.3 mg/dL (0.1-1.0); Bun/Creatinine Ratio 52.7 (12.0-20.0); Calcium, Blood 8.1 mg/dL (8.5-10.1); Creatinine, Blood 0.72 mg/dL (0.40-1.00); Globulin, Blood 3.9 g/dL (2.2-4.0); Phosphorus, Blood 2.4 mg/dL (2.5-4.9); Potassium, Blood 3.7 mmol/L (3.5-5.5); Total Protein, Blood 6.5 g/dL (6.4-8.2)
[2024-05-20 04:57] VITALS: BP 120/82
--- NOTE | 2024-05-20 05:49 | NUR ---
TROPONIN RESULTED AND CALLED TO DR. MARTINEZ, NO NEW ORDERS. CONTINUE TO MONITOR.
--- NOTE | 2024-05-20 06:46 | NUR ---
PT MAINTAINS GOOD O2 SAT ON CURRENT AIRVO SETTINGS. VITAL SIGNS REMAINED STABLE. NO C/O CHEST PAIN OR INCREASED SOB. TELEMETRY ST CHANGES NOTED EKG AND TROPONIN NEGATIVE, RESIDENT MADE AWARE. PT WAS UP TO BSC X2 FOR URINATION WITH GOOD OUTPUT. PT REMAINS STAND-BY TO ONE ASSIST TO BSC. LUNG SOUNDS IMPROVED FROM LAST SHIFT. PT TAKING MEDICATIONS W/O PROBLEM AND REMAINS AOX4.
[2024-05-20 08:45] VITALS: BP 135/89
[2024-05-20 12:10] VITALS: BP 123/80
[2024-05-20 15:24] VITALS: BP 122/90
--- NOTE | 2024-05-20 16:54 | NUR ---
SUMMARY- PT AAOX4. X1 ASSIST TO BSC. PT COMPLAINED OF MINOR ABD "PAIN FROM COUGHING." PT DID HAVE AIRVO INCREASED FROM 60L/40% UP TO 60L/50% DUE TO PT DESATURATING TO THE LOW 80%. CALENDER OPERATOR MD BHAGAT AWARE. PT'S SATS HAVE REMAINED ABOVE 90% SINCE INCREASE. PT HAS MODERATE APPETITE.
[2024-05-20 19:40] VITALS: BP 123/83
--- NOTE | 2024-05-20 21:16 | NUR ---
DR. MARTINEZ AND PHARMACY CALLED REGARDING LAST DOSE OF PAXOLVID FROM PT HOME MED. DAUGHTER WAS ABLE TO BE CONTACTED AND MISSING DOSE ACCOUNTED FOR. PT TOOK 1 DOSE PACK AT HOME PRIOR TO BEING ADMITTED TO HOSPITAL FOR A TOTAL OF 10/10 DOSES.
[2024-05-21 02:23] VITALS: BP 133/89
[2024-05-21 03:58] VITALS: BP 128/79
[2024-05-21 04:40] LABS: BASOPHILS ABSOLUTE AUTO 0.01 K/mm3 (0.00-0.23); BASOPHILS PERCENT AUTO 0 % (0-2); EOSINOPHILS PERCENT AUTO 0 % (0-6); Hematocrit 40.4 % (33.0-51.0); Hemoglobin 12.8 g/dL (11.5-16.0); IMMATURE GRAN ABSOLUTE AUTO 0.05 K/mm3 (0.00-0.10); IMMATURE GRAN PERCENT AUTO 1 % (0-1); LYMPHOCYTES ABSOLUTE AUTO 0.13 K/mm3 (0.84-5.20); LYMPHOCYTES PERCENT AUTO 1 % (21-46); MONOCYTES ABSOLUTE AUTO 0.44 K/mm3 (0.16-1.47); MONOCYTES PERCENT AUTO 5 % (4-13); Mean Corpuscular HGB Conc 31.7 g/dL (31.5-36.5); Mean Corpuscular Volume 95 fL (80-100); Mean Platelet Volume 8.7 fL (9.1-12.4); NEUTROPHILS ABSOLUTE AUTO 9.07 K/mm3 (1.96-9.15); NEUTROPHILS PERCENT AUTO 94 % (41-73); Platelet Count 359 K/mm3 (150-400); RDW Coefficient Variation 14.1 % (11.7-14.2); RDW Standard Deviation 48.9 fL (35.1-46.3); Red Blood Cell Count 4.27 M/mm3 (3.80-5.20)
[2024-05-21 05:05] LABS: Albumin, Blood 2.5 g/dL (3.4-5.0); Albumin/Globulin Ratio 0.7 (0.8-1.8); Bilirubin, Total 0.3 mg/dL (0.1-1.0); Bun/Creatinine Ratio 53.1 (12.0-20.0); Calcium, Blood 8.2 mg/dL (8.5-10.1); Creatinine, Blood 0.87 mg/dL (0.40-1.00); Globulin, Blood 3.6 g/dL (2.2-4.0); Total Protein, Blood 6.1 g/dL (6.4-8.2)
--- NOTE | 2024-05-21 06:06 | NUR ---
PT STABLE THROUGHOUT THE NIGHT. PT DID DISLODGE MASK ONCE AND DESATED QUICKLY TO 80%, ONCE MASK REPLACE SATS RETURNED TO 90% RAPIDLY. PT IS ABLE TO TRANSFER TO BSC WITH MINIMAL ASSIST AND APPEARS TO BE GETTING STRONGER. PT STATES SHE IS FEELING BETTER. O2 DEMAND STILL REMAINS HIGH. PT CONTINUES TO HAVE GOOD URINARY OUTPUT AND PO INTAKE.
[2024-05-21 08:15] VITALS: BP 127/79
[2024-05-21 11:54] VITALS: BP 123/79
[2024-05-21 16:44] VITALS: BP 120/73
--- NOTE | 2024-05-21 17:35 | NUR ---
PT SUMMARY; NO ACUTE CHANGE FOR THE SHIFT. PT HAS BEEN ON 5L OF O2 T/O SHIFT ABLE TO TITRATE DOWN TO 4L, NEEDING UP TO 6L WHEN AMBULATING. VITALS HAS BEEN STABLE. PHYSICAL THERAPIST CLEARED PT FOR REHAB NOW CAN BE INDEPENDENT IN THE ROOM PT WAS STILL INSTRUCTED TO USE CALL LIGHTS FOR HELP, AND SAVE URINE AND BOWEL OUTPUT FOR DOCUMENTATION, PT HAS BEEN UP IN THE CHAIR FOR MEALS. FAMILY CAME IN TO VISIT. PT HAS BEEN CALLING APPROPRIATELY, ABLE TO MAKE NEEDS KNOWN. BREATHING TX PER RT PROVIDED. NO OTHER ISSUES REPORTED WILL REPORT TO ONCOMING SHIFT
[2024-05-21 21:00] VITALS: BP 125/78
[2024-05-22] VITALS (7 sets, daily range): BP systolic 120–134; BP diastolic 69–83
[2024-05-22 04:35] LABS: BASOPHILS ABSOLUTE AUTO 0.01 K/mm3 (0.00-0.23); BASOPHILS PERCENT AUTO 0 % (0-2); EOSINOPHILS PERCENT AUTO 0 % (0-6); Hematocrit 38.5 % (33.0-51.0); Hemoglobin 11.8 g/dL (11.5-16.0); IMMATURE GRAN ABSOLUTE AUTO 0.13 K/mm3 (0.00-0.10); IMMATURE GRAN PERCENT AUTO 1 % (0-1); LYMPHOCYTES ABSOLUTE AUTO 0.11 K/mm3 (0.84-5.20); LYMPHOCYTES PERCENT AUTO 1 % (21-46); MONOCYTES ABSOLUTE AUTO 0.42 K/mm3 (0.16-1.47); MONOCYTES PERCENT AUTO 3 % (4-13); Mean Corpuscular HGB 29.6 pg (26.0-34.0); Mean Corpuscular HGB Conc 30.6 g/dL (31.5-36.5); Mean Corpuscular Volume 97 fL (80-100); Mean Platelet Volume 8.7 fL (9.1-12.4); NEUTROPHILS ABSOLUTE AUTO 12.07 K/mm3 (1.96-9.15); NEUTROPHILS PERCENT AUTO 95 % (41-73); Platelet Count 437 K/mm3 (150-400); RDW Coefficient Variation 14.1 % (11.7-14.2); RDW Standard Deviation 50.2 fL (35.1-46.3); Red Blood Cell Count 3.98 M/mm3 (3.80-5.20); White Blood Cell Count 12.74 K/mm3 (4.00-11.30)
[2024-05-22 04:54] LABS: Bun/Creatinine Ratio 61.9 (12.0-20.0); Calcium, Blood 8.2 mg/dL (8.5-10.1); Creatinine, Blood 0.86 mg/dL (0.40-1.00); Potassium, Blood 4.7 mmol/L (3.5-5.5)
--- NOTE | 2024-05-22 06:02 | NUR ---
END OF SHIFT SUMMARY NO ACUTE EVENTS OVERNIGHT. SHE IS A/O X4 AND ABLE TO MAKE HER NEEDS KNOWN; SHE SLEPT TILL 0400. SPO2 >90% ON 8L HIGH FLOW NC. AFEBRILE. HR 90-100. BP STABLE WITH SBP 120'S. SHE IS AMBULATING TO BATHROOM WITH A STAND BY ASSIST FOR LINE MANAGEMENT. SALINE LOCKED. WILL REPORT TO AM RN WHEN AVAILABLE.
--- NOTE | 2024-05-22 17:35 | NUR ---
ASSUMED CARE OF PT AT 0700 THIS AM. NO ACUTE CHANGES NOTED T/O THE SHIFT. PT OOB TO SHOWER AND AMBULATES TO RESTROOM. SPO2 DROPS TO LOW 80s WITH ACTIVITY ON 5L O2 VIA NC, BUT WILL RECOVER WHEN PT RESTS AND TAKES A FEW DEEP BREATHS. PT EXPRESSES THAT SHE WOULD LIKE TO GO HOME AND IS MOTIVATED TO BE OOB IN HER ROOM. PT HAS HAD NO COMPLAINTS, DENIES PAIN. PT IS ABLE TO USE CALL LIGHT FOR NEEDS AND MAKE HER NEEDS KNWON. SHE IS A&OX4 AND STEADY ON HER FEET. CALL LIGHT IS IN REACH AT THIS TIME, WILL CONTINUE TO MONITOR AND GIVE REPORT TO NOC SHIFT RN.
[2024-05-23 00:11] VITALS: BP 163/91
--- NOTE | 2024-05-23 02:30 | NUR ---
TRANSFER: LATE ENTRY FOR 05/22/24 @212 PATIENT WAS RECIEVED FROM PCU VIA WHEEL CHAIR. ABLE TO AMBULATE INTO THE BATHROOM WITH A STEADY GAIT. PATIENT WAS ORIENTED TO THE ROOM AND CALL, NO SMOKING POLICY WAS REVIEWED. PATIENT IS IN ISOLATION FOR COVID.
[2024-05-23 04:31] VITALS: BP 119/80
[2024-05-23 06:39] LABS: BASOPHILS ABSOLUTE AUTO 0.02 K/mm3 (0.00-0.23); BASOPHILS PERCENT AUTO 0 % (0-2); EOSINOPHILS PERCENT AUTO 0 % (0-6); Hematocrit 38.3 % (33.0-51.0); Hemoglobin 11.7 g/dL (11.5-16.0); IMMATURE GRAN ABSOLUTE AUTO 0.36 K/mm3 (0.00-0.10); IMMATURE GRAN PERCENT AUTO 2 % (0-1); LYMPHOCYTES ABSOLUTE AUTO 0.12 K/mm3 (0.84-5.20); LYMPHOCYTES PERCENT AUTO 1 % (21-46); MONOCYTES ABSOLUTE AUTO 0.79 K/mm3 (0.16-1.47); MONOCYTES PERCENT AUTO 4 % (4-13); Mean Corpuscular HGB 29.5 pg (26.0-34.0); Mean Corpuscular HGB Conc 30.5 g/dL (31.5-36.5); Mean Corpuscular Volume 97 fL (80-100); Mean Platelet Volume 8.7 fL (9.1-12.4); NEUTROPHILS ABSOLUTE AUTO 16.74 K/mm3 (1.96-9.15); NEUTROPHILS PERCENT AUTO 93 % (41-73); Platelet Count 514 K/mm3 (150-400); RDW Standard Deviation 49.4 fL (35.1-46.3); Red Blood Cell Count 3.97 M/mm3 (3.80-5.20); White Blood Cell Count 18.03 K/mm3 (4.00-11.30)
[2024-05-23 06:57] LABS: Albumin, Blood 2.5 g/dL (3.4-5.0); Albumin/Globulin Ratio 0.8 (0.8-1.8); Bilirubin, Total 0.2 mg/dL (0.1-1.0); Bun/Creatinine Ratio 65.8 (12.0-20.0); Calcium, Blood 8.1 mg/dL (8.5-10.1); Creatinine, Blood 0.71 mg/dL (0.40-1.00); Globulin, Blood 3.3 g/dL (2.2-4.0); Potassium, Blood 4.8 mmol/L (3.5-5.5); Total Protein, Blood 5.8 g/dL (6.4-8.2)
[2024-05-23 07:53] VITALS: BP 123/75
[2024-05-23] MEDS ORDERED: MethylPREDNISolone Sod Succ 40 MG VIAL IV SCH (10:17)
[2024-05-23] MEDS ORDERED: Amlodipine Bes2.5 MG PO (14:35)
[2024-05-23] MEDS ORDERED: Prednisone10 MG PO (14:36)
[2024-05-23 15:53] VITALS: BP 125/83
--- NOTE | 2024-05-23 17:22 | NUR ---
DISCHARGE NOTE- PT WAS GIVEN VERBL AND WRITTEN DISCHARGE INSTRUCTIONS AND ACKNOWLEDGED UNDERSTANDING OF THEM. PORTABLE O2 PRESENT IN THE ROOM. PT RIDE ARRIVED. TELE AND IV DC'D PRIOR TO DISCHARGE. PT ESCORTED OUT VIA WC BY THE LATHE MECHANIC. NO S&S OF DISTRESS NOTED AT THE TIME OF DISCHARGE.
== END 2024-05-23 17:05 | disposition home or self-care (01) | DRG 177 ==
LOC: ER 17:42 → PCU 19:45 → ICUE 19:45 → PCU 22:14 → ICUE 05-16 00:20 → PCU 05-18 13:50 → MEDS 05-22 21:44
PROVIDERS: Emergency Medicine; Internal Medicine; Internal Medicine Critical Care Medicine; ADMIT Nurse Practitioner Acute Care
PROC: 5A09357 Assistance with Respiratory Ventilation, Less than 24 Consecutive Hours, Continuous Positive Airway Pressure (ICD-10-PCS; principal; 2024-05-15)
PROC: 5A0935A Assistance with Respiratory Ventilation, Less than 24 Consecutive Hours, High Flow/Velocity Cannula (ICD-10-PCS; 2024-05-15)
PROC: XW033E5 Introduction of Remdesivir Anti-infective into Peripheral Vein, Percutaneous Approach, New Technology Group 5 (ICD-10-PCS; 2024-05-15)
PROC: XW0DXM6 Introduction of Baricitinib into Mouth and Pharynx, External Approach, New Technology Group 6 (ICD-10-PCS; 2024-05-15)
DX: U07.1 COVID-19 (principal); J96.21 Acute and chronic respiratory failure with hypoxia; J96.22 Acute and chronic respiratory failure with hypercapnia; E87.0 Hyperosmolality and hypernatremia; J44.1 Chronic obstructive pulmonary disease with (acute) exacerbation; E87.1 Hypo-osmolality and hyponatremia; E87.29 Other acidosis; N17.9 Acute kidney failure, unspecified; I50.20 Unspecified systolic (congestive) heart failure; Z51.5 Encounter for palliative care; E87.8 Other disorders of electrolyte and fluid balance, not elsewhere classified; I27.20 Pulmonary hypertension, unspecified; Z99.81 Dependence on supplemental oxygen; F17.210 Nicotine dependence, cigarettes, uncomplicated; E86.1 Hypovolemia; I35.1 Nonrheumatic aortic (valve) insufficiency; Z79.899 Other long term (current) drug therapy; Z79.51 Long term (current) use of inhaled steroids
CPT/HCPCS: 36415; 36600; 51703; 71045; 80048; 80053; 81001; 82803; 82947; 83735; 83880; 84100; 84145; 84484; 85025; 85027; 86140; 93005; 93010; 93306; 94640; 94660; 94664; 94760; 94761; 94762; 96374; 96375; 97110; 97162; 97166; 97530; 99285-25; A9270; C9399; J0248; J0360; J0456; J1650; J2919; J3475; J7030; J7050; J7060

== ENCOUNTER 2024-05-27 13:57 | Inpatient (IN) | payer OTHER ==
[~2024-05-27] VITALS: Ht 165.1 cm; Wt 44.7 kg
[~2024-05-27 13:57] MED LIST changes: +Amlodipine Bes2.5 MG; +BUDESONIDE1 MG/2 M1 INH; +PAXLOVID 150-11 EAC1; +Prednisone10 MG PO
[2024-05-27] MEDS ORDERED: MethylPREDNISolone Sod Succ 125 MG Vial IV ONE (14:05)
[2024-05-27] MEDS ORDERED: Ipratropium/Albuterol SulF 2.5-0.5MG/3 ML Amp INH ONE (14:05)
[2024-05-27] MEDS ORDERED: Prednisone10 MG (14:10)
[2024-05-27 14:12] LABS: Hematocrit 37.1 % (33.0-51.0); Hemoglobin 11.2 g/dL (11.5-16.0); Mean Corpuscular HGB 29.8 pg (26.0-34.0); Mean Corpuscular HGB Conc 30.2 g/dL (31.5-36.5); Mean Corpuscular Volume 99 fL (80-100); Mean Platelet Volume 8.2 fL (9.1-12.4); Platelet Count 490 K/mm3 (150-400); RDW Coefficient Variation 14.5 % (11.7-14.2); RDW Standard Deviation 52.7 fL (35.1-46.3); Red Blood Cell Count 3.76 M/mm3 (3.80-5.20); White Blood Cell Count 29.67 K/mm3 (4.00-11.30)
[2024-05-27 14:29] LABS: Albumin, Blood 1.9 g/dL (3.4-5.0); Albumin/Globulin Ratio 0.5 (0.8-1.8); Bilirubin, Total 0.4 mg/dL (0.1-1.0); Bun/Creatinine Ratio 56.9 (12.0-20.0); Calcium, Blood 8.4 mg/dL (8.5-10.1); Creatinine, Blood 0.72 mg/dL (0.40-1.00); Globulin, Blood 3.7 g/dL (2.2-4.0); Potassium, Blood 4.9 mmol/L (3.5-5.5); Total Protein, Blood 5.6 g/dL (6.4-8.2)
[2024-05-27] MEDS ORDERED: Albuterol 2.5 MG/3 ML VIAL INH ONE (14:30)
[2024-05-27 14:34] LABS: BAND PERCENT MAN 9 % (0-8); BASOPHILS PERCENT MAN 0 % (0-2); EOSINOPHILS ABSOLUTE MAN 0.29 K/mm3 (0.00-0.68); EOSINOPHILS PERCENT MAN 1 % (0-6); LYMPHOCYTES ABSOLUTE MAN 0.89 K/mm3 (0.84-5.20); LYMPHOCYTES PERCENT MAN 3 % (21-46); MONOCYTES ABSOLUTE MAN 1.78 K/mm3 (0.16-1.47); MONOCYTES PERCENT MAN 6 % (4-13); SEG NEUTROPHILS PERCENT MAN 81 % (41-73); TOTAL CELLS COUNTED 100
[2024-05-27] MEDS ORDERED: Azithromycin 500 MG in NS 250 ML IV ONE (15:05)
[2024-05-27] MEDS ORDERED: CefTRIAXone Sodium 1,000 MG in NS 100 ML IV ONE (15:05)
--- NOTE | 2024-05-27 16:50 | NUR ---
DR. LOVE REQUEST CODE STATUS REVIEW WITH PATIENT. PT BECAME VERY GUARDED WITH THE MENTION OF ADVANCE DIRECTIVE AND POLST. SHE STATED, "THEY JUST WANT ME TO HAVE ONE SO YOU CAN START KILLING ME OFF NOW." OLGA WAS REDIRECTABLE AND SETTLED ONCE THE ADVANCE DIRECTIVE WAS EXPLAINED 'YOU GET TO WRITE DOWN WHAT YOUR WISHES ARE AND WE (MEDICAL STAFF) HAVE TO HONOR THEM.' PT'S DTR, JEROMY AT BEDSIDE. JEROMY IS SUPPORTIVE OF ADVANACE DIRECTIVE AND HONORING PT'S WISHES. PT REPORTS A TRAUMATIC EXPERIENCE WITH HER MOTHERS PASSING. OLGA IS FEARFULL OF FILLING OUT A POLST OR ADVANCE DIRECTIVE. THIS PC RN PROVIDED ADVANCE DIRECTIVE BOOKLET FOR REVIEW AND PLAN FOLLOW UP WITH PT AFTER SHE IS ADMITTED TO A ROOM. PT AGREEABLE TO FOLLOW UP VISIT.
[2024-05-27] MEDS ORDERED: PredniSONE 20 MG Tab PO SCH (17:10)
[2024-05-27] MEDS ORDERED: Budesonide 1 MG/2 ML RESP INH SCH (17:10)
[2024-05-27 17:14] LABS: Base Excess Venous 17.8 mmol/L; Bicarbonate Venous 38.4 mmol/L (24.0-30.0); PCO2 Venous 78 mmHg (38-42); pH Blood Venous 7.35 (7.34-7.37)
[2024-05-27] MEDS ORDERED: Albuterol HFA200 ACT/6.7 GM INH INH SCH (17:20)
[2024-05-27] MEDS ORDERED: Mometasone/Formoterol MDI 200/5 mcg 13 GM INH SCH (17:20)
[2024-05-27] MEDS ORDERED: Vancomycin HCL 1,250 MG in NS 250 ML IV ONE (17:25)
[2024-05-27] MEDS ORDERED: Albuterol HFA200 ACT/6.7 GM INH INH PRN (18:10)
[2024-05-27] MEDS ORDERED: Piperacillin/Tazobactam Sod 4.5 GM in NS 100 ML IV ONE (18:20)
[2024-05-27] MEDS ORDERED: PredniSONE 20 MG Tab PO ONE (22:05)
[2024-05-28] MEDS ORDERED: Piperacillin/Tazobactam Sod 4.5 GM in NS 100 ML IV SCH ×2 (00:26)
[2024-05-28 03:56] LABS: Hematocrit 36.1 % (33.0-51.0); Hemoglobin 10.7 g/dL (11.5-16.0); Mean Corpuscular HGB 29.5 pg (26.0-34.0); Mean Corpuscular HGB Conc 29.6 g/dL (31.5-36.5); Mean Corpuscular Volume 99 fL (80-100); Mean Platelet Volume 8.3 fL (9.1-12.4); Platelet Count 423 K/mm3 (150-400); RDW Coefficient Variation 14.6 % (11.7-14.2); RDW Standard Deviation 54.2 fL (35.1-46.3); Red Blood Cell Count 3.63 M/mm3 (3.80-5.20); White Blood Cell Count 23.63 K/mm3 (4.00-11.30)
[2024-05-28 04:20] LABS: Albumin, Blood 1.7 g/dL (3.4-5.0); Albumin/Globulin Ratio 0.4 (0.8-1.8); Bilirubin, Total 0.3 mg/dL (0.1-1.0); Bun/Creatinine Ratio 53.2 (12.0-20.0); Calcium, Blood 8.3 mg/dL (8.5-10.1); Creatinine, Blood 0.77 mg/dL (0.40-1.00); Potassium, Blood 4.9 mmol/L (3.5-5.5); Total Protein, Blood 5.7 g/dL (6.4-8.2)
[2024-05-28 04:34] LABS: BAND PERCENT MAN 30 % (0-8); BASOPHILS PERCENT MAN 0 % (0-2); EOSINOPHILS PERCENT MAN 0 % (0-6); MONOCYTES ABSOLUTE MAN 0.47 K/mm3 (0.16-1.47); MONOCYTES PERCENT MAN 2 % (4-13); NEUTROPHILS ABSOLUTE MAN 23.15 K/mm3 (1.96-9.15); SEG NEUTROPHILS PERCENT MAN 68 % (41-73); TOTAL CELLS COUNTED 100
[2024-05-28] MEDS ORDERED: Acetaminophen 325 MG TABLET PO PRN (05:35)
[2024-05-28] MEDS ORDERED: Vancomycin HCL 750 MG in NS 250 ML IV SCH (06:00)
[2024-05-28] MEDS ORDERED: PredniSONE 20 MG Tab PO SCH (09:00)
[2024-05-28] MEDS ORDERED: Enoxaparin 40 MG/0.4 ML SYR SC SCH (09:00)
[2024-05-28 09:57] VITALS: BP 160/81
[2024-05-28] MEDS ORDERED: HydrALAZINE HCl 25 MG Tab PO PRN (11:10)
--- NOTE | 2024-05-28 11:48 | NUR ---
ADMIT NOTE PT ARRIVED TO PCU FROM ED VIA ED STRETCHER THIS AM. PT AMBULATED INDEPENDENTLY FROM ED STRETCHER TO PCU BED. DYSPNIA NOTED W/ EXERTION. SP02>90% ON 5L VENTI MASK. PT NOTED TO DESAT WHEN SLEEPING, INCREASED TO 7L. TELEMETRY SHOWS NSR/SINUS TACH, HR 90'S-100'S. HTN NOTED, SEE VITALS. PURWIK TO SUCTION. MEDICATION LIST UPDATED. PT W/ SCATTERED BRUISING. MEPLEX IN PLACE ON COCCYX SINCE LAST DISCHARGE. REMOVED, NO REDNESS NOTED. DAUGHTER CALLED, WILL BE IN THIS AFTERNOON. PT ORIENTED TO ROOM, CALL LIGHT. CALL LIGHT IN REACH. CURRENTLY EATING LUNCH, SITTING UP IN BED.
[2024-05-28 12:09] VITALS: BP 153/107
[2024-05-28 15:51] VITALS: BP 150/84
[2024-05-28] MEDS ORDERED: Piperacillin/Tazobactam Sod 3.375 GM in NS 100 ML IV SCH (16:00)
--- NOTE | 2024-05-28 16:58 | NUR ---
SHIFT SUMMARY NO ACUTE CHANGES SINCE CARE ASSUMPTION. PT A&OX4, ABLE TO MAKE NEEDS KNOWN. SP02>90% ON 7L HIFLO. TELEMETRY SHOWS SINUS TACH, HR MOSTLY 100'S. DENIES PAIN. PURWIK TO SUCTION. PT STATES SHE "FEELS BLOATED" AND ANTICIPATES BM THIS EVENING. ABX INFUSING PER EMAR. FAMILY IN ROOM MOST OF AFTERNOON. PT WATCHING TV IN ROOM. CALL LIGHT IN REACH.
[2024-05-28 20:09] VITALS: BP 141/80
[2024-05-28] MEDS ORDERED: Ipratropium/Albuterol SulF 2.5-0.5MG/3 ML Amp INH PRN (23:30)
[2024-05-28 23:41] VITALS: BP 140/87
[2024-05-29 00:46] LABS: PCO2 Venous 78.6 mmHg (38-42); pH Blood Venous 7.35 (7.34-7.37)
[2024-05-29 00:47] LABS: Base Excess Venous 18.2 mmol/L; Bicarbonate Venous 39.1 mmol/L (24.0-30.0)
[2024-05-29 04:39] VITALS: BP 137/79
--- NOTE | 2024-05-29 04:56 | NUR ---
SHIFT SUMMARY MAITE WAS A/OX 4 ON ASSESMENT. LUNG SOUNDS DIM T/O ALL LUNG FREEMAN. PT ON 7L HIGH FLOW 02 AT START OF SHIFT. PT HAD DIFFICULTY MAINTAINING SATS > 90, PT SWITCHED TO OXYMIZER MASK W/ SOME IMPROVEMENT. RT CONSULTED, DUONEB TREATMENT AND VBG ORDERED. SATS IMPROVED AFTER BREATHING TREATMENT. PT TITRATED BETWENN 7-9L T/O SHIFT TO KEEP SATS 90 OR GREATER. PT HAD PURWIC IN PLACE BUT WAS NOT VOIDING, AND WAS ONLY ABLE TO VOID WHEN TRANSFERED TO [facility] [place]. NO ACUTE EVENTS OR NOTED CHANGES TO CONDITION. PT RESTING IN BED AT A LOW POSITION WITH CALL LIGHT IN REACH.
[2024-05-29 05:40] LABS: Vancomycin, Trough 27.4 ug/mL (5.0-10.0)
[2024-05-29 08:25] VITALS: BP 140/84
[2024-05-29] MEDS ORDERED: Vancomycin HCL 750 MG in NS 250 ML IV SCH (09:00)
[2024-05-29 11:17] VITALS: BP 125/88
--- NOTE | 2024-05-29 12:02 | NUR ---
Spiritual care visit conducted. Patient immediately shares about her family and how wonderful her dtr, Geovanna has been throughout her life. She shares about her goal to take advantage of the good start that she has in breaking bad habits and to take much better care of herself. She will go to stay with her dtr when she discharges from the hospital. She shares about her Sabianism misti and welcomes prayer, which I gladly provide. PAtient showed signs of an elevated mood. I will continue to remain available to patient and family.
--- NOTE | 2024-05-29 12:11 | NUR ---
WHILE THE PT IS EATING, SHE WAS ON 7L HFNC AND SHE DESATURATED KATIE TO 70'S. I TURNED HER UP TO 10HFNC WHILE EATING AND AFTER ABOUT TWO MINUTES OF DEEP BREATHING SHE WAS ABLE TO RECOVER. SP02 >90% ON 10L HFNC WHILE EATING. PT DENIES ANY INCREASED SOB.
[2024-05-29 15:06] VITALS: BP 138/86
--- NOTE | 2024-05-29 15:18 | NUR ---
WHEN GETTING 1500 VITALS ON THE PT I NOTICED SOMETHING WAS OFF WHEN SHE WAS LOOKING AT ME. I ASKED HER WHAT IS WRONG WITH HER EYE AND SHE SAID "IT DOES THAT. IT FALLS AT RANDOM TIMES. IT COMES AND GOES. I GET BOTOX TO HELP." I DID A NEURO ASSESSMENT ON THE PT AND AND SHE HAD A LEFT EYE AND LEFT FACIAL DROOP. BEFORE HAVING THE PT SMILE SHE STATED THE LEFT SIDE OF HER MOUTH WILL NOT WORK; WHICH WAS TRUE IN ASSESSMENT. THIS WAS NOT PRESENT THIS MORNING. VS STABLE. SWALLOW AND AIR WAY STILL PROTECTED. I DISCUSSED THIS WITH ANOTHER NURSE AND CALLED DR. DAMON TO LET HIM KNOW. NO FURTHER ORDERS AT THIS TIME.
--- NOTE | 2024-05-29 18:08 | NUR ---
SHIFT SUMMARY PT IS A&OX4, CALLS APPROPRAITELY, AND MAKES NEEDS KNOWN. SHE WORKED WITH PT TODAY AND AMBULATED IN HER ROOM. SHE IS A 1P ASSIST W/ FWW. ON TELE THE PT HAS BEEN SR 90'S-100'S, BP STABLE. SHE HAD A FEW EPISODES OF DESATURATING W/ ACTIVITY AND WHEN EATING. SHE HAS BEEN BETWEEN 7-15L HFNC TO MAINTAIN SP02 >90%. THE PT STATED HER SOB HAS IMPROVED. NO ANGINA OR CHEST PRESSURE. THE PT HAD AN A FACIAL DROOP EPISODE THIS AFTERNOON THAT SHE STATES IS CHRONIC. SEE PREVIOUS NOTE FOR MORE INFORMATION. TWO CSM CONSULTANT DID A RAPID COVID TEST ON THE PT AND IT CAME BACK NEGATIVE; SHE WAS CLEARED BY INFECTION CONTROL FOR ISOLATION. SEE NOTES FOR ANY UPDATES.
[2024-05-29 19:32] VITALS: BP 140/82
--- NOTE | 2024-05-29 20:54 | NUR ---
PAIENT AWAKE ALERT, WITH HIGH OXYGEN DEMAND. PATIENT SLOWLY DECREASED TO 10 LITERS FROM 11 LITERS. NO CHANGE IN RESPIRATORY STATUS, 02 SAT SLIGHTLY DECREASING. PATIENT TO BE TRANSFERRED TO MEDICAL SUGRICAL, REPORT CALLED TO RANJIT.
[2024-05-30 03:31] VITALS: BP 144/74
[2024-05-30 04:58] LABS: BASOPHILS ABSOLUTE AUTO 0.01 K/mm3 (0.00-0.23); BASOPHILS PERCENT AUTO 0 % (0-2); EOSINOPHILS ABSOLUTE AUTO 0.01 K/mm3 (0.00-0.68); EOSINOPHILS PERCENT AUTO 0 % (0-6); Hematocrit 36.3 % (33.0-51.0); Hemoglobin 10.6 g/dL (11.5-16.0); IMMATURE GRAN ABSOLUTE AUTO 0.16 K/mm3 (0.00-0.10); IMMATURE GRAN PERCENT AUTO 1 % (0-1); LYMPHOCYTES ABSOLUTE AUTO 0.23 K/mm3 (0.84-5.20); LYMPHOCYTES PERCENT AUTO 2 % (21-46); MONOCYTES ABSOLUTE AUTO 1.23 K/mm3 (0.16-1.47); MONOCYTES PERCENT AUTO 8 % (4-13); Mean Corpuscular HGB 29.8 pg (26.0-34.0); Mean Corpuscular HGB Conc 29.2 g/dL (31.5-36.5); Mean Corpuscular Volume 102 fL (80-100); NEUTROPHILS ABSOLUTE AUTO 13.31 K/mm3 (1.96-9.15); NEUTROPHILS PERCENT AUTO 89 % (41-73); Platelet Count 365 K/mm3 (150-400); RDW Coefficient Variation 14.5 % (11.7-14.2); RDW Standard Deviation 54.6 fL (35.1-46.3); Red Blood Cell Count 3.56 M/mm3 (3.80-5.20); White Blood Cell Count 14.95 K/mm3 (4.00-11.30)
[2024-05-30 05:39] LABS: BAND PERCENT MAN 19 % (0-8); BASOPHILS PERCENT MAN 0 % (0-2); EOSINOPHILS PERCENT MAN 0 % (0-6); MONOCYTES ABSOLUTE MAN 0.89 K/mm3 (0.16-1.47); MONOCYTES PERCENT MAN 6 % (4-13); NEUTROPHILS ABSOLUTE MAN 14.05 K/mm3 (1.96-9.15); SEG NEUTROPHILS PERCENT MAN 75 % (41-73); TOTAL CELLS COUNTED 100
[2024-05-30 05:57] LABS: Albumin, Blood 1.7 g/dL (3.4-5.0); Albumin/Globulin Ratio 0.4 (0.8-1.8); Bilirubin, Total 0.3 mg/dL (0.1-1.0); Bun/Creatinine Ratio 41.7 (12.0-20.0); Calcium, Blood 8.4 mg/dL (8.5-10.1); Creatinine, Blood 0.77 mg/dL (0.40-1.00); Globulin, Blood 3.8 g/dL (2.2-4.0); Potassium, Blood 5.1 mmol/L (3.5-5.5); Total Protein, Blood 5.5 g/dL (6.4-8.2)
--- NOTE | 2024-05-30 06:15 | NUR ---
SHIFT SUMMARY PATIENT TRANSFERRED FROM PCU LAST NIGHT FOR COVID PNA. CURRENTLY WEANED DOWN TO 8LHFNC, NO SIGNS OF DISTRESS. STILL C/O DYSPNEA ON EXERTION WHEN GETTING OOB TO USE THE BSC. HAS 2 SOFT STOOLS LAST NIGHT, PATIENT SAYS SHE THINKS IT IS BECAUSE SHE HAS RECENTLY CHANGED HER DIET HOWEVER SHE IS RECEIVING VANC AND ZOSYN FOR PNA. A&OX4, C/O DARNELL LAST NIGHT- RECEIVED TYLENOL. PT RECOMMENDING HHC AND FWW USEAGE. PATIENT SAYING SHE WILL STAY WITH HER DAUGHTER UNTIL SHE IS STRONGER.
[2024-05-30 07:20] VITALS: BP 140/82
[2024-05-30] MEDS ORDERED: Furosemide 10 MG / ML 2ML Vial IV SCH (09:00)
[2024-05-30 15:24] VITALS: BP 150/82
[2024-05-30] MEDS ORDERED: NS 250 ML IV PRN (16:00)
--- NOTE | 2024-05-30 18:41 | NUR ---
SUMMARY- [id number] THIS SHIFT. PT ON 8-10L HF NC. DENIES SOB. LUNGS DIMINISHED AND TIGHT. PT HAD EPISODES OF LOOSE STOOLS THIS MORNING. NO ACUTE EVENTS THIS SHIFT. PT MEDICATED WITH TYLENOL FOR DARNELL PAIN, WHICH HELPED PER PT.
[2024-05-30 21:28] VITALS: BP 153/84
[2024-05-30] MEDS ORDERED: Calcium Carbonate 500 MG Tab Chew PO PRN (21:55)
[2024-05-31 04:59] VITALS: BP 129/76
--- NOTE | 2024-05-31 05:18 | NUR ---
END OF SHIFT SUMMARY PT REMAINS ON 8L VIA HFNC TO KEEP SATS >92. PT HAS SOME SOB WITH EXERTION, HAS NOT DESATTED. UP TO BSC INDEP. C/O HEARTBURN, MEDICATED WITH TUMS WITH GOOD EFFECT. NO OTHER EVENTS OVERNIGHT.
[2024-05-31 07:18] VITALS: BP 147/86
--- NOTE | 2024-05-31 09:00 | NUR ---
pt laying in bed awake a/ox4, pleasant and cooperative with care, gets dyspnic with activity, lungs are course t/o, with thick sputum that she is having trouble bringing up, will ask for mucinex, currently on 8 liters o2 via high flow, she is on 3liters 02 at baseline, hrr, no edema noted, gets herself to bedside cammode, skin c/w/d, maew piv to r and lfa, sites are clear and patent, btx4, abd round soft nontender, states she feels a bit bloated, and having loose stools, jessee, call light in reach.
[2024-05-31] MEDS ORDERED: GuaiFENesin 600 MG TabCR PO SCH (13:15)
[2024-05-31] MEDS ORDERED: Loperamide HCl 2 MG Cap PO PRN (13:15)
[2024-05-31] MEDS ORDERED: Lactobacil 2-S.Thermo-Bifido 1 1 Cap PO SCH (13:20)
[2024-05-31 14:00] VITALS: BP 145/80
[2024-05-31 19:20] VITALS: BP 145/83
--- NOTE | 2024-05-31 19:20 | NUR ---
started pt on imodium today as she was having frequent loose stools, probiotic and mucinex, also has cont ox, rt placed her on a mask vs cannula due to mouth breathing, no further changes this shift. call light in reach.
--- NOTE | 2024-05-31 23:35 | NUR ---
MD COMMUNICATION RECD CALL FROM DR. DAMON, WANTING TO CONFIRM PT ON CONT PULSE OX MONITORING. PER MD, O2 SAT GOAL IS 89% OR ABOVE. PT CURRENTLY ON 5L O2 VIA OXYMASK WITH 91% SAT, DECREASED O2 TO 4L. O2 SAT REMAINING AT 91%
[2024-06-01 03:49] VITALS: BP 159/86
[2024-06-01 05:06] LABS: BASOPHILS ABSOLUTE AUTO 0.01 K/mm3 (0.00-0.23); BASOPHILS PERCENT AUTO 0 % (0-2); EOSINOPHILS ABSOLUTE AUTO 0.01 K/mm3 (0.00-0.68); EOSINOPHILS PERCENT AUTO 0 % (0-6); Hematocrit 36.7 % (33.0-51.0); Hemoglobin 10.7 g/dL (11.5-16.0); IMMATURE GRAN ABSOLUTE AUTO 0.12 K/mm3 (0.00-0.10); IMMATURE GRAN PERCENT AUTO 1 % (0-1); LYMPHOCYTES ABSOLUTE AUTO 0.34 K/mm3 (0.84-5.20); LYMPHOCYTES PERCENT AUTO 2 % (21-46); MONOCYTES ABSOLUTE AUTO 0.74 K/mm3 (0.16-1.47); MONOCYTES PERCENT AUTO 5 % (4-13); Mean Corpuscular HGB 29.4 pg (26.0-34.0); Mean Corpuscular HGB Conc 29.2 g/dL (31.5-36.5); Mean Corpuscular Volume 101 fL (80-100); Mean Platelet Volume 8.2 fL (9.1-12.4); NEUTROPHILS ABSOLUTE AUTO 13.37 K/mm3 (1.96-9.15); NEUTROPHILS PERCENT AUTO 92 % (41-73); Platelet Count 266 K/mm3 (150-400); RDW Coefficient Variation 14.5 % (11.7-14.2); RDW Standard Deviation 53.3 fL (35.1-46.3); Red Blood Cell Count 3.64 M/mm3 (3.80-5.20); White Blood Cell Count 14.59 K/mm3 (4.00-11.30)
[2024-06-01 05:41] LABS: Alanine Aminotransfer (ALT/SGP 30 U/L (12-78); Albumin, Blood 1.7 g/dL (3.4-5.0); Albumin/Globulin Ratio 0.4 (0.8-1.8); Alk Phos 72 U/L (50-136); Anion Gap Unable to Calculate mmol/L (3-11); Aspartate Aminotrans (AST/SGOT 17 U/L (12-37); Bilirubin, Total 0.3 mg/dL (0.1-1.0); Blood Urea Nitrogen 26 mg/dL (8-24); Bun/Creatinine Ratio 33.8 (12.0-20.0); Calcium, Blood 8.5 mg/dL (8.5-10.1); Chloride, Blood 91 mmol/L (98-108); Creatinine, Blood 0.77 mg/dL (0.40-1.00); Globulin, Blood 3.9 g/dL (2.2-4.0); Glomerular Filtration Rate 81 (60-); Glucose, Blood 82 mg/dL (70-99); Potassium, Blood 5.1 mmol/L (3.5-5.5); Sodium, Blood 138 mmol/L (136-145); Total Protein, Blood 5.6 g/dL (6.4-8.2); Vancomycin, Random 18.2 ug/mL
[2024-06-01 05:42] LABS: CO2, Blood >45 mmol/L (21-32)
--- NOTE | 2024-06-01 06:33 | NUR ---
END OF SHIFT SUMMARY PT A&OX4. REMAINED ON 4L VIA OXYMASK DURING NIGHT WITH SATS MAINTAINING >89, MONITORED ON CONT PULSE OX. PT AMBULATING TO BR IND WITH FWW, TOLERATING WELL WITH MINIMAL SOB. PRODUCTIVE SPUTUM THIS AM, PT UTILIZING YAUNKER SUCTION. PT REPORTS 1 LOOSE BM IN THE EVENING. VOIDING WELL. CRITICAL CARBON DIOXIDE LEVEL REPORTED TO DR. TATUM THIS AM. NO ACUTE EVENTS OVERNIGHT.
[2024-06-01 07:19] VITALS: BP 162/85
[2024-06-01] MEDS ORDERED: Vancomycin HCL 750 MG in NS 250 ML IV SCH (08:00)
[2024-06-01] MEDS ORDERED: PredniSONE 20 MG Tab PO SCH (09:00)
[2024-06-01] MEDS ORDERED: Losartan Potassium 25 MG Tab PO SCH (09:00)
--- NOTE | 2024-06-01 10:56 | NUR ---
patient pulse ox alarm is steady so ran in to check on her. Sitting up struggling with 2 types oxygen on. Pulse ox says 76. cannot get it above that reading. patient exhausted. Called resp therapy and r.n. immediately. Followed Nurse instruction to bump up o2 to 9. Nurse here now, instructed to stop talking and focus on breaths. reading up and down. 76 to 88 then back down to 85 while o2 is at 15. Resp therapist here now. continued monitor and work w her til raised to 90 then shot bk down to 88. 20 minutes later holding at 90 on maximo setting.
[2024-06-01 11:49] LABS: PCO2 Arterial 81.7 mmHg (35-45); PO2 Arterial 67 mmHg (80-100); pH Blood Arterial 7.46 (7.35-7.45)
[2024-06-01 12:18] VITALS: BP 132/91
[2024-06-01 15:27] VITALS: BP 134/91
--- NOTE | 2024-06-01 15:35 | NUR ---
LATE ENTRY: AT 0930 CALL FROM UPPER [facility]APER STATING PT SATS ARE 76. ADVISED TO INCREASE TO 9 LPM SHE WAS ON 4 LPM. ON ARRIVAL TO ROOM PT IS AWAKE AND HAS OXI MASK ON O2 AT 9 LPM. PT IS DYSPNEIC, WITH RR OF 28. PT IS INSTRUCTED TO DO PURSED LIP BREATHING AND REQUESTED SHE NOT TALK DUE TO SATS DROPPING WHIL SHE TALKS. SATS FLUCTUATIONG FROM 82-86. RT NOTIFIED AND HERE TO ASSIST. DR. DAMON NOTIFIED RT RECOMMENDS PT TO BE ON AIRVO. PER DR. DAMON ATTEMPT DUO NEB FIRST AND ATTEMPT TO TITRATE AND GET STAT CXR. PT IS CURRENTLY ON 15 LPM PER O2. PT GIVEN THE DUP NEB PER ORDER. PT DOES IMPROVE WITH O2 SATS TO 88-90 BUT CONTINUES TO HAVE DYSPNEA WITH BREATHING TX. AT 1030 PT SATS BEGIN TO DROP AGAIN. PT PLACED ON AIRVO. DR. DAMON NOTIFIED. PLACED ABG ORDER.
--- NOTE | 2024-06-01 17:42 | NUR ---
SHIFT SUMMARY: PT IS A/O X 4, SBA, PLEASANT AND COOPERATIVE WITH CARE. PT CONTINUE TO BE ON AIRVO. RT TITRATING AND MONITORING. SATS HAVE REMAINED 88-93% SINCE PT ON AIRVO. NO S/S OF DYSPNEA AT REST. PT HAD 3 EPISODE OF DIARRHEA. IMMODIUM WAS EFFECTIVE AFTER 3RD EPISODE. PT HAS NO C/O PAIN, NAUSEA. PT HAD GOOD URINE OUTPUT TODAY.
[2024-06-01] MEDS ORDERED: Piperacillin/Tazobactam Sod 3.375 GM in NS 100 ML IV SCH (18:00)
[2024-06-01] MEDS ORDERED: MethylPREDNISolone Sod Succ 40 MG VIAL IV SCH (18:00)
[2024-06-01 19:52] VITALS: BP 126/74
[2024-06-02 02:55] VITALS: BP 142/86
--- NOTE | 2024-06-02 06:12 | NUR ---
SHIFT SUMMARY ASSUMED CARE PF PT AT 1900. PT IS A/O4. HEART OUNDS REGULAR. LUNG SOUNDS HAAVE WHEEZES AND CRACKLES. PT ON AIRVO 50L @ 50% AT START OF SHIFT. PT WAS TITRATED DOWN TO 40L % 56%. PT STILL STATES SOB WITH ACTIVITY. PT USED BSC WITH MINIMAL ASSIST. PT HAD SOFT STOOLS. NO ACUTE EVENTS DURING THE NOC PT SLEPT WALL AND STATES FEELING MUCH BETTER THIS AM.
[2024-06-02 08:01] VITALS: BP 137/87
[2024-06-02] MEDS ORDERED: PredniSONE 20 MG Tab PO SCH (12:00)
[2024-06-02 16:20] VITALS: BP 154/90
--- NOTE | 2024-06-02 17:23 | NUR ---
PATIENT A/OX4, UP INDEPENDENTLY TO THE BSC. CONTINUES ON AIRVO AT 40L/47 FiO2 AND SATS REMAIN ABOVE 89%. PATIENT DENIES ANY PAIN OR DISCOMFORT. STATES SHE IS FEELING BETTER TODAY. COUGHING UP MODERATE AMOUNT OF THICK YELLOW SPUTUM. NO NEW CONCERNS THIS SHIFT. PATIENT CALM AND COOPERATIVE, ABLE TO MAKE NEEDS KNOWN.
[2024-06-02 20:07] VITALS: BP 135/80
[2024-06-03 03:42] VITALS: BP 164/89
--- NOTE | 2024-06-03 05:44 | NUR ---
SHIFT SUMMARY PT A7O X4, PLEASANT AND COOPERATIVE WITH CARE. VSS; SBP 130 - 150'S, HR 84-100, RR 20, AFEBRILE. PT CURRENTLY ON 8LPM HHFNC, REQUIRING 10 -11 LPM WITH ACTIVITY. PT ABLE TO RECOVER WITH DEEP BREATHING ALTHOUGH IT TAKES SEVERAL MINUTES. PT USING BIPAP WITH 6 L BLEED IN WHILE ASLEEP. PT TOLERATE BIPAP WELL. SPO2 90 - 95% WITH HHFNC AND/OR BIPAP. PT CONTINUES WITH COUGH, BUT STATES HAS IMPROVED "SOME". DENIES CP/PRESSURE, SOB, DIZZINESS, N/V, GENERAL PAIN. PT C/O HEADACHE AT START OF SHIFT; TYLENOL ADMINISTERED WITH ADEQUATE RELIEF. PT DENIES DIARRHEA/LOOSE STOOLS THIS SHIFT. PT VOIDING USING BSC, PT OVERALL WEAK BUT IS ABLE TO STAND AND AMBULATE A FEW STEPS TO BSC AND REPOSITION INDEPENDENTLY IN BED. PT CALLS APPROPRIATELY AND ABLE TO MAKE NEEDS KNOWN. CALL LIGHT IN REACH. WILL UPDATE ONCOMING RN
[2024-06-03 07:48] VITALS: BP 161/89
[2024-06-03 07:53] LABS: BASOPHILS ABSOLUTE AUTO 0.01 K/mm3 (0.00-0.23); BASOPHILS PERCENT AUTO 0 % (0-2); EOSINOPHILS PERCENT AUTO 0 % (0-6); Hematocrit 33.9 % (33.0-51.0); Hemoglobin 10.5 g/dL (11.5-16.0); IMMATURE GRAN ABSOLUTE AUTO 0.16 K/mm3 (0.00-0.10); IMMATURE GRAN PERCENT AUTO 1 % (0-1); LYMPHOCYTES PERCENT AUTO 3 % (21-46); MONOCYTES ABSOLUTE AUTO 0.43 K/mm3 (0.16-1.47); MONOCYTES PERCENT AUTO 4 % (4-13); Mean Corpuscular HGB 29.7 pg (26.0-34.0); Mean Platelet Volume 8.8 fL (9.1-12.4); NEUTROPHILS ABSOLUTE AUTO 11.26 K/mm3 (1.96-9.15); NEUTROPHILS PERCENT AUTO 93 % (41-73); Platelet Count 220 K/mm3 (150-400); RDW Coefficient Variation 14.6 % (11.7-14.2); RDW Standard Deviation 51.4 fL (35.1-46.3); Red Blood Cell Count 3.54 M/mm3 (3.80-5.20); White Blood Cell Count 12.16 K/mm3 (4.00-11.30)
[2024-06-03 08:03] LABS: Mean Corpuscular Volume 96 fL (80-100)
[2024-06-03 08:19] LABS: Alanine Aminotransfer (ALT/SGP 28 U/L (12-78); Albumin, Blood 1.8 g/dL (3.4-5.0); Albumin/Globulin Ratio 0.4 (0.8-1.8); Alk Phos 67 U/L (50-136); Aspartate Aminotrans (AST/SGOT 11 U/L (12-37); Bilirubin, Total 0.3 mg/dL (0.1-1.0); Blood Urea Nitrogen 30 mg/dL (8-24); Bun/Creatinine Ratio 45.5 (12.0-20.0); Calcium, Blood 8.5 mg/dL (8.5-10.1); Chloride, Blood 86 mmol/L (98-108); Creatinine, Blood 0.66 mg/dL (0.40-1.00); Globulin, Blood 4.1 g/dL (2.2-4.0); Glomerular Filtration Rate 93 (60-); Glucose, Blood 131 mg/dL (70-99); Sodium, Blood 136 mmol/L (136-145); Total Protein, Blood 5.9 g/dL (6.4-8.2); Vancomycin, Trough 16.9 ug/mL (5.0-10.0)
[2024-06-03 08:20] LABS: Anion Gap Unable to Calculate mmol/L (3-11)
[2024-06-03 08:21] LABS: CO2, Blood >45 mmol/L (21-32)
[2024-06-03 08:41] LABS: BAND PERCENT MAN 6 % (0-8); BASOPHILS PERCENT MAN 0 % (0-2); EOSINOPHILS PERCENT MAN 0 % (0-6); MONOCYTES ABSOLUTE MAN 0.12 K/mm3 (0.16-1.47); MONOCYTES PERCENT MAN 1 % (4-13); NEUTROPHILS ABSOLUTE MAN 12.03 K/mm3 (1.96-9.15); SEG NEUTROPHILS PERCENT MAN 93 % (41-73); TOTAL CELLS COUNTED 100
[2024-06-03] MEDS ORDERED: Dose Adjust by Pharmacy XX STA (08:41)
[2024-06-03 14:56] VITALS: BP 156/97
--- NOTE | 2024-06-03 17:11 | NUR ---
PATIENT A/OX4, UP WITH FWW AND SBA. PATIENT DOWN TO 7LO2 VIA HIGH FLOW NC. REPORTS FEELING BETTER TODAY. TOLERATING REGULAR DIET, NO LONGER HAVING DIARRHEA. UP INDEPENDENTLY TO BSC, CONTINENT OF BOWEL AND BLADDER. PLEASANT AND COOPERATIVE WITH CARE, MAKES NEEDS KNOWN. NO NEW CONCERNS THIS SHIFT.
[2024-06-03 21:14] VITALS: BP 156/85
[2024-06-04 02:43] VITALS: BP 153/96
--- NOTE | 2024-06-04 05:40 | NUR ---
SUMMARY: PT A/OX4, CALLS APPROPRIATELY TO SPECIFY NEEDS AND IS PLEASANT AND COOPERATIVE W/CARE. SHE'S CONTINENT TO BSC/TOILET AND IS UP AD KARO IN ROOM. SHE'S MILDLY SOB W/EXERTIONS BUT RECOVERS QUICKLY. PT REMAINS ON 7L HIGH FLOW O2 FOR SPO2 >91% (3L BASELINE). HOME O2 EVAL IS NEEDED. SHE RECEIVED TUMS PRN FOR TOLERABLE RELIEF OF EPIGASTRIC DISTRESS. NO ACUTE CHANGES, VSS/AFEBRILE. WCTM AND REPORT TO DAY RN.
[2024-06-04 07:35] VITALS: BP 147/84
[2024-06-04] MEDS ORDERED: Losartan Potassium 50 MG Tab PO SCH (09:00)
[2024-06-04 09:26] LABS: BASOPHILS ABSOLUTE AUTO 0.01 K/mm3 (0.00-0.23); BASOPHILS PERCENT AUTO 0 % (0-2); EOSINOPHILS ABSOLUTE AUTO 0.03 K/mm3 (0.00-0.68); EOSINOPHILS PERCENT AUTO 0 % (0-6); Hemoglobin 10.4 g/dL (11.5-16.0); IMMATURE GRAN ABSOLUTE AUTO 0.14 K/mm3 (0.00-0.10); IMMATURE GRAN PERCENT AUTO 1 % (0-1); LYMPHOCYTES ABSOLUTE AUTO 0.61 K/mm3 (0.84-5.20); LYMPHOCYTES PERCENT AUTO 4 % (21-46); MONOCYTES ABSOLUTE AUTO 0.73 K/mm3 (0.16-1.47); MONOCYTES PERCENT AUTO 5 % (4-13); Mean Corpuscular HGB 29.7 pg (26.0-34.0); Mean Corpuscular HGB Conc 30.6 g/dL (31.5-36.5); Mean Corpuscular Volume 97 fL (80-100); Mean Platelet Volume 8.8 fL (9.1-12.4); NEUTROPHILS ABSOLUTE AUTO 12.67 K/mm3 (1.96-9.15); NEUTROPHILS PERCENT AUTO 89 % (41-73); Platelet Count 202 K/mm3 (150-400); RDW Coefficient Variation 14.6 % (11.7-14.2); RDW Standard Deviation 51.9 fL (35.1-46.3); White Blood Cell Count 14.19 K/mm3 (4.00-11.30)
[2024-06-04 09:49] LABS: Alanine Aminotransfer (ALT/SGP 25 U/L (12-78); Albumin, Blood 1.8 g/dL (3.4-5.0); Albumin/Globulin Ratio 0.5 (0.8-1.8); Alk Phos 66 U/L (50-136); Aspartate Aminotrans (AST/SGOT 14 U/L (12-37); Bilirubin, Total 0.5 mg/dL (0.1-1.0); Blood Urea Nitrogen 28 mg/dL (8-24); Bun/Creatinine Ratio 40.2 (12.0-20.0); Calcium, Blood 8.2 mg/dL (8.5-10.1); Chloride, Blood 86 mmol/L (98-108); Globulin, Blood 3.7 g/dL (2.2-4.0); Glomerular Filtration Rate 91 (60-); Glucose, Blood 98 mg/dL (70-99); Potassium, Blood 3.9 mmol/L (3.5-5.5); Sodium, Blood 138 mmol/L (136-145); Total Protein, Blood 5.5 g/dL (6.4-8.2)
[2024-06-04 09:50] LABS: Anion Gap Unable to Calculate mmol/L (3-11)
[2024-06-04 09:53] LABS: CO2, Blood >45 mmol/L (21-32)
[2024-06-04] MEDS ORDERED: Nystatin 100,000 Unit/ML Susp 5 ML UDC MT SCH (13:00)
[2024-06-04 15:33] VITALS: BP 157/93
--- NOTE | 2024-06-04 18:38 | NUR ---
SUMMARY- PT AAOX4. ON 6-7L HFNC OR OXY MASK THIS SHIFT TO MAINTAIN O2 SATS ABOVE 88%. NO ACUTE EVENTS THIS SHIFT. IND TO BSC. PT COMLAINED OF THRUSH PAIN THIS SHIFT-MD LEMON NOTIFIED-ORAL NYSTATIN GIVEN PER ORDER AND TYLENOL GIVEN PRN.
[2024-06-04 19:36] VITALS: BP 145/83
[2024-06-05 03:58] VITALS: BP 139/86
[2024-06-05 05:11] LABS: BASOPHILS ABSOLUTE AUTO 0.01 K/mm3 (0.00-0.23); BASOPHILS PERCENT AUTO 0 % (0-2); EOSINOPHILS ABSOLUTE AUTO 0.04 K/mm3 (0.00-0.68); EOSINOPHILS PERCENT AUTO 0 % (0-6); Hematocrit 32.4 % (33.0-51.0); Hemoglobin 9.8 g/dL (11.5-16.0); IMMATURE GRAN ABSOLUTE AUTO 0.12 K/mm3 (0.00-0.10); IMMATURE GRAN PERCENT AUTO 1 % (0-1); LYMPHOCYTES ABSOLUTE AUTO 0.44 K/mm3 (0.84-5.20); LYMPHOCYTES PERCENT AUTO 3 % (21-46); MONOCYTES ABSOLUTE AUTO 0.76 K/mm3 (0.16-1.47); MONOCYTES PERCENT AUTO 5 % (4-13); Mean Corpuscular HGB 29.3 pg (26.0-34.0); Mean Corpuscular HGB Conc 30.2 g/dL (31.5-36.5); Mean Corpuscular Volume 97 fL (80-100); Mean Platelet Volume 9.1 fL (9.1-12.4); NEUTROPHILS ABSOLUTE AUTO 12.77 K/mm3 (1.96-9.15); NEUTROPHILS PERCENT AUTO 90 % (41-73); Platelet Count 203 K/mm3 (150-400); RDW Coefficient Variation 14.5 % (11.7-14.2); RDW Standard Deviation 51.3 fL (35.1-46.3); Red Blood Cell Count 3.34 M/mm3 (3.80-5.20); White Blood Cell Count 14.14 K/mm3 (4.00-11.30)
[2024-06-05 05:57] LABS: Albumin, Blood 1.7 g/dL (3.4-5.0); Albumin/Globulin Ratio 0.5 (0.8-1.8); Bilirubin, Total 0.4 mg/dL (0.1-1.0); Bun/Creatinine Ratio 45.1 (12.0-20.0); Calcium, Blood 8.1 mg/dL (8.5-10.1); Creatinine, Blood 0.58 mg/dL (0.40-1.00); Globulin, Blood 3.5 g/dL (2.2-4.0); Potassium, Blood 4.3 mmol/L (3.5-5.5); Total Protein, Blood 5.2 g/dL (6.4-8.2)
--- NOTE | 2024-06-05 06:24 | NUR ---
SUMMARY: PT A/OX4, IS PLEASANT AND COOPERATIVE W/CARE AND SPECIFIES NEEDS. SHE'S UP TO BSC AD KARO AND IS AWARE OF LIMITATIONS. PT MILDLY SOB W/EXERTION BUT RECOVERS AT REST. SHE BEGAN ON 7L O2 VIA HF NC BUT WAS TITRATED TO 4L HF FOR SPO2 >94%. PT THEN BEGAN MOUTH BREATHING WHILE ASLEEP SO WAS SWITCHED TO OXY-MASK AND SHE'S SINCE REQ'D 5L O2 TO MAINTAIN SPO2 >93%. CO2 REMAINS CRITICAL AT 45 AND HAS BEEN SINCE 06/01/24, NO NEW ORDERS RECEIVED. SHE HAS AN OCC.PROD COUGH W/RODRÍGUEZ SPUTUM OBSERVED AND ORAL NYSTATIN IS BEING RECEIVED FOR THRUSH. NO ACUTE CHANGES, VSS/AFEBRILE. WCTM AND REPORT TO DAY RN.
[2024-06-05 06:59] VITALS: BP 134/100
[2024-06-05 07:00] VITALS: BP 134/100
[2024-06-05] MEDS ORDERED: PredniSONE 10 MG Tab PO SCH (09:00)
[2024-06-05 15:08] VITALS: BP 147/92
--- NOTE | 2024-06-05 18:39 | NUR ---
SUMMARY- PT AAOX4. SBA. PT NOW ON 6 L HF NC WHEN EATING OR OXY MASK WHEN NOT EATING. MOIST, CONGESTED, AND PRODUCTIVE COUGH.
[2024-06-05 19:10] VITALS: BP 137/84
--- NOTE | 2024-06-06 02:42 | NUR ---
SHIFT SUMMARY PT IS ABLE TO MAKE HER NEEDS KNOWN AND COOPERATIVE WITH CARE. O2 VIA NC 4-5L ORDERED>90% DURING THIS SHIFT. NO ACUTE DISTRESS OR EVENTS DURING THIS SHIFT. BED AT THE LOWEST POSITION, CALL LIGHT WITHIN REACH.
[2024-06-06 02:48] VITALS: BP 161/92
[2024-06-06 04:53] LABS: BASOPHILS ABSOLUTE AUTO 0.01 K/mm3 (0.00-0.23); BASOPHILS PERCENT AUTO 0 % (0-2); EOSINOPHILS ABSOLUTE AUTO 0.11 K/mm3 (0.00-0.68); EOSINOPHILS PERCENT AUTO 1 % (0-6); Hematocrit 32.3 % (33.0-51.0); Hemoglobin 9.8 g/dL (11.5-16.0); IMMATURE GRAN ABSOLUTE AUTO 0.15 K/mm3 (0.00-0.10); IMMATURE GRAN PERCENT AUTO 1 % (0-1); LYMPHOCYTES PERCENT AUTO 4 % (21-46); MONOCYTES ABSOLUTE AUTO 0.61 K/mm3 (0.16-1.47); MONOCYTES PERCENT AUTO 5 % (4-13); Mean Corpuscular HGB 29.3 pg (26.0-34.0); Mean Corpuscular HGB Conc 30.3 g/dL (31.5-36.5); Mean Corpuscular Volume 97 fL (80-100); Mean Platelet Volume 9.1 fL (9.1-12.4); NEUTROPHILS ABSOLUTE AUTO 11.21 K/mm3 (1.96-9.15); NEUTROPHILS PERCENT AUTO 89 % (41-73); Platelet Count 211 K/mm3 (150-400); RDW Coefficient Variation 14.6 % (11.7-14.2); RDW Standard Deviation 51.8 fL (35.1-46.3); Red Blood Cell Count 3.34 M/mm3 (3.80-5.20); White Blood Cell Count 12.59 K/mm3 (4.00-11.30)
[2024-06-06 05:27] LABS: Alanine Aminotransfer (ALT/SGP 27 U/L (12-78); Albumin, Blood 1.8 g/dL (3.4-5.0); Albumin/Globulin Ratio 0.5 (0.8-1.8); Alk Phos 66 U/L (50-136); Anion Gap Unable to Calculate mmol/L (3-11); Aspartate Aminotrans (AST/SGOT 14 U/L (12-37); Bilirubin, Total 0.5 mg/dL (0.1-1.0); Blood Urea Nitrogen 24 mg/dL (8-24); Bun/Creatinine Ratio 38.4 (12.0-20.0); CO2, Blood >45 mmol/L (21-32); Chloride, Blood 92 mmol/L (98-108); Creatinine, Blood 0.63 mg/dL (0.40-1.00); Globulin, Blood 3.6 g/dL (2.2-4.0); Glomerular Filtration Rate 94 (60-); Glucose, Blood 94 mg/dL (70-99); Potassium, Blood 4.5 mmol/L (3.5-5.5); Sodium, Blood 137 mmol/L (136-145); Total Protein, Blood 5.4 g/dL (6.4-8.2)
--- NOTE | 2024-06-06 05:33 | NUR ---
CRITICAL LAB VALUE, THIS CARDIOPULMONARY TECHNOLOGIST RECEIVED A VOCERA CALL FROM TRENA ACKERMAN/ COAL CONVEYOR OPERATOR @[id number]. CRITICAL VALUE: CO2>45. CALLED W/O ANSWER TO ON-CALL HOSPITALIST @0634.
--- NOTE | 2024-06-06 06:01 | NUR ---
CRITICAL VALUE PHONE CALL FROM LAB AT 0545: Co2>45. THIS MORTGAGE FIELD INSPECTOR CONTACTED , ON-CALL HOSPITALIST AT 0545. NO NEW ORDERS.
[2024-06-06 07:00] VITALS: BP 146/85
--- NOTE | 2024-06-06 13:40 | NUR ---
Spiritual care visit conducted. PAtient is lying in bed and alert. She tells me about how discouraged she is because of the long stay in the hospital and her outbreak of thrush. She talks about her family and all the struggles that are hitting so many of the members of the family. We discuss her Sabianist misti and this seems to uplift her spirits immediately. I also provided prayer that caused the patient to become tearful as she states how the prayer made her day and the the visit brought a new mellisa to her. I will continue to remain available.
[2024-06-06 15:34] VITALS: BP 119/73
--- NOTE | 2024-06-06 17:34 | NUR ---
SUMMARY- PT AAOX4. SBA TO BATHROOM. PT ON 4.5 - 9 L TODAY. PT IS CURRENTLY NOW ON 6L HF NC TONIGHT. PT DESATS WHEN AMBULATING OR WHEN EATING AND O2 MUST BE INCREASED IN ORDER TO MAINTAIN SATS ABOVE 89%. PT HAS GOOG APPETITE. THRUSH IN MOUTH IS MUCH IMPROVED TODAY.
[2024-06-06 19:15] VITALS: BP 136/77
--- NOTE | 2024-06-07 04:18 | NUR ---
SHIFT SUMMARY PT IS PLEASANT, ABLE TO MAKE HER NEEDS KNOWN, AND INDEPENDENT IN THE HOSPITAL ROOM. O2 @4L VIA NC >90% SATS. LS DIMINISHED PER AUSCULTATION. PRODUCTIVE COUGH. PT REPORTS ORAL THRUSH IMPROVING. NO ACUTE EVENTS DURING THIS SHIFT. BED AT THE LOWEST POSITION, CALL LIGHT WITHIN REACH.
[2024-06-07 04:35] VITALS: BP 141/81
[2024-06-07 05:08] LABS: BASOPHILS ABSOLUTE AUTO 0.03 K/mm3 (0.00-0.23); BASOPHILS PERCENT AUTO 0 % (0-2); EOSINOPHILS PERCENT AUTO 1 % (0-6); Hemoglobin 9.5 g/dL (11.5-16.0); IMMATURE GRAN ABSOLUTE AUTO 0.15 K/mm3 (0.00-0.10); IMMATURE GRAN PERCENT AUTO 1 % (0-1); LYMPHOCYTES ABSOLUTE AUTO 0.48 K/mm3 (0.84-5.20); LYMPHOCYTES PERCENT AUTO 4 % (21-46); MONOCYTES ABSOLUTE AUTO 0.76 K/mm3 (0.16-1.47); MONOCYTES PERCENT AUTO 6 % (4-13); Mean Corpuscular HGB Conc 29.7 g/dL (31.5-36.5); Mean Corpuscular Volume 98 fL (80-100); Mean Platelet Volume 8.7 fL (9.1-12.4); NEUTROPHILS PERCENT AUTO 88 % (41-73); Platelet Count 253 K/mm3 (150-400); RDW Coefficient Variation 14.7 % (11.7-14.2); RDW Standard Deviation 52.8 fL (35.1-46.3); Red Blood Cell Count 3.28 M/mm3 (3.80-5.20); White Blood Cell Count 12.62 K/mm3 (4.00-11.30)
[2024-06-07 05:57] LABS: Albumin, Blood 1.8 g/dL (3.4-5.0); Albumin/Globulin Ratio 0.5 (0.8-1.8); Bilirubin, Total 0.3 mg/dL (0.1-1.0); Bun/Creatinine Ratio 36.2 (12.0-20.0); Calcium, Blood 7.9 mg/dL (8.5-10.1); Creatinine, Blood 0.66 mg/dL (0.40-1.00); Globulin, Blood 3.5 g/dL (2.2-4.0); Potassium, Blood 4.6 mmol/L (3.5-5.5); Total Protein, Blood 5.3 g/dL (6.4-8.2)
[2024-06-07 07:48] VITALS: BP 144/86
[2024-06-07] MEDS ORDERED: Vancomycin HCL 750 MG in NS 250 ML IV SCH (12:00)
[2024-06-07] MEDS ORDERED: Lidocaine 2% Viscous Soln 20 ML,Nystatin 100,000 Unit/ml Susp 20 ML,Mag Hydrox/Al Hydro... MT PRN (14:45)
[2024-06-07 15:17] VITALS: BP 124/75
[2024-06-07 19:31] VITALS: BP 129/74
[2024-06-08 04:32] VITALS: BP 135/76
--- NOTE | 2024-06-08 05:17 | NUR ---
SHIFT SUMMARY. PATIENT IS A&OX4. PATIENT RESTING WITH RESPIRATIONS EQUAL AND UNLABORED AT THIS TIME. PATIENT IS ON 6L'S VIA HIGH FLOW NC SATTING >92%. PATIENT SLEEPING T/O MOST OF SHIFT. PATIENT UP INDEPENDENTLY IN ROOM TO BEDSIDE COMMODE. CALLS APPROPRIATELY. NO ACUTE CHANGES OR EVENTS NOTED OVER NIGHT. BED IS LOCKED IN THE LOWEST POSITION WITH CALL LIGHT IN REACH. CARE IS ONGOING.
[2024-06-08 05:39] LABS: BASOPHILS ABSOLUTE AUTO 0.02 K/mm3 (0.00-0.23); BASOPHILS PERCENT AUTO 0 % (0-2); EOSINOPHILS ABSOLUTE AUTO 0.13 K/mm3 (0.00-0.68); EOSINOPHILS PERCENT AUTO 1 % (0-6); Hematocrit 31.8 % (33.0-51.0); Hemoglobin 9.4 g/dL (11.5-16.0); IMMATURE GRAN ABSOLUTE AUTO 0.14 K/mm3 (0.00-0.10); IMMATURE GRAN PERCENT AUTO 1 % (0-1); LYMPHOCYTES ABSOLUTE AUTO 0.53 K/mm3 (0.84-5.20); LYMPHOCYTES PERCENT AUTO 5 % (21-46); MONOCYTES ABSOLUTE AUTO 0.78 K/mm3 (0.16-1.47); MONOCYTES PERCENT AUTO 7 % (4-13); Mean Corpuscular HGB 29.3 pg (26.0-34.0); Mean Corpuscular HGB Conc 29.6 g/dL (31.5-36.5); Mean Corpuscular Volume 99 fL (80-100); Mean Platelet Volume 8.8 fL (9.1-12.4); NEUTROPHILS ABSOLUTE AUTO 9.96 K/mm3 (1.96-9.15); NEUTROPHILS PERCENT AUTO 86 % (41-73); Platelet Count 292 K/mm3 (150-400); RDW Coefficient Variation 14.7 % (11.7-14.2); RDW Standard Deviation 53.7 fL (35.1-46.3); Red Blood Cell Count 3.21 M/mm3 (3.80-5.20); White Blood Cell Count 11.56 K/mm3 (4.00-11.30)
[2024-06-08 06:15] LABS: Albumin, Blood 1.8 g/dL (3.4-5.0); Albumin/Globulin Ratio 0.5 (0.8-1.8); Bilirubin, Total 0.3 mg/dL (0.1-1.0); Bun/Creatinine Ratio 43.8 (12.0-20.0); Calcium, Blood 8.1 mg/dL (8.5-10.1); Creatinine, Blood 0.64 mg/dL (0.40-1.00); Globulin, Blood 3.5 g/dL (2.2-4.0); Potassium, Blood 4.9 mmol/L (3.5-5.5); Total Protein, Blood 5.3 g/dL (6.4-8.2)
[2024-06-08 07:27] VITALS: BP 135/83
[2024-06-08] MEDS ORDERED: Enoxaparin 30 MG/0.3 ML SYR SC SCH (09:00)
[2024-06-08 14:51] VITALS: BP 137/79
[2024-06-08 19:08] VITALS: BP 144/83
--- NOTE | 2024-06-08 19:31 | NUR ---
LATE ENTRY NOTE PATIENT DESAT TO 84 CALLED PHYSICAN AND RESPIRATORY THERAPIST. GIVEN VANCOCIN TREATMENT, BREATH SOUNDS DIMINISHED, PHYSICIAN ORDERED 7 LITERS OF O2, AND RESPIRATORY TREATMENTS. PLAN OF CARE PN TREATED WITH VANCOCIN AND POSSIBLE DISCHARGE IF PATIENT IMPROVES.
--- NOTE | 2024-06-08 19:34 | NUR ---
PATIENT GIVEN VANCOCIN 3 GM OVER COURSE OF SHIFT. HER BREATH SOUNDS ARE COARSE WITH PRODUCTIVE COUGH. PATIENT BREATHING IS UNLABORED, PATIENT ABLE TO SHOWER WITHOUT BECOMING SHORT OF BREATH AND PARTICIPATED WITH PHYSICAL THERAPY.
[2024-06-09 04:01] VITALS: BP 122/79
--- NOTE | 2024-06-09 04:08 | NUR ---
SHIFT SUMMARY PATIENT HAD NO ACUTE CHANGES. AXOX 4 AND SBA TO BR. ON 6L O2 NC AND 3-4L O2 BASELINE. SCHEDULE NYSTATIN 5 ML FOR THRUSH GIVEN. PIV REMAINS INTACT. DENIES CHEST PAIN AND N/V. VSS/AFEBRILE. REFUSED CPAP. SLEPT MOST OF SHIFT. CALL LIGHT IN REACH. BED IN LOWEST POSITION. WILL CONTINUE TO MONITOR UNTIL DAY SHIFT NURSE ASSUMES CARE.
[2024-06-09 07:48] VITALS: BP 130/77
--- NOTE | 2024-06-09 11:24 | NUR ---
NO CHANGES, NO DISTRESS, CLEARLY MAKES NEEDS KNOWN, CALL LIGHT WITH IN REACH
[2024-06-09 11:49] LABS: Vancomycin, Trough 12.3 ug/mL (5.0-10.0)
[2024-06-09 15:07] VITALS: BP 129/77
--- NOTE | 2024-06-09 19:25 | NUR ---
NO ACUTE CHANGES, 6L O2 HIGH FLOW DECREASED TO 5L O2, ALERT AND ORIENTED TO ALL, USES CALL LIGHT, INDEPENDANT TO BATHROOM. CALL LIGHT WITH IN REACH, RELAYED TO PM RN
[2024-06-09 19:28] VITALS: BP 115/70
[2024-06-10 03:24] VITALS: BP 128/84
--- NOTE | 2024-06-10 05:50 | NUR ---
SHIFT SUMMARY NO ACUTE EVENTS DURING THIS SHIFT. O2@ 90% ON 5 L VIA NC. PT CONTINUES TO HAVE A PRODUCTIVE COUGH, LS DIMINISHED TO AUSCULTATION. PT DENIES PAIN AND DISCOMFORT DURING THIS SHIFT. PT HAS RESTED WELL T/O THIS SHIFT>10HRS. RR EVEN, UNLABORED NO SX OF ACUTE DISTRESS. PT IS ABLE TO MAKE HER NEEDS KNOWN. BED AT THE LOWEST POSITION, CALL LIGHT WITHIN REACH.
[2024-06-10 06:09] LABS: BASOPHILS ABSOLUTE AUTO 0.01 K/mm3 (0.00-0.23); BASOPHILS PERCENT AUTO 0 % (0-2); EOSINOPHILS ABSOLUTE AUTO 0.06 K/mm3 (0.00-0.68); EOSINOPHILS PERCENT AUTO 1 % (0-6); Hematocrit 30.9 % (33.0-51.0); Hemoglobin 9.1 g/dL (11.5-16.0); IMMATURE GRAN PERCENT AUTO 1 % (0-1); LYMPHOCYTES ABSOLUTE AUTO 0.58 K/mm3 (0.84-5.20); LYMPHOCYTES PERCENT AUTO 7 % (21-46); MONOCYTES ABSOLUTE AUTO 0.86 K/mm3 (0.16-1.47); MONOCYTES PERCENT AUTO 10 % (4-13); Mean Corpuscular HGB 29.4 pg (26.0-34.0); Mean Corpuscular HGB Conc 29.4 g/dL (31.5-36.5); Mean Corpuscular Volume 100 fL (80-100); Mean Platelet Volume 8.5 fL (9.1-12.4); NEUTROPHILS ABSOLUTE AUTO 6.77 K/mm3 (1.96-9.15); NEUTROPHILS PERCENT AUTO 81 % (41-73); Platelet Count 425 K/mm3 (150-400); RDW Coefficient Variation 14.6 % (11.7-14.2); RDW Standard Deviation 53.1 fL (35.1-46.3); White Blood Cell Count 8.38 K/mm3 (4.00-11.30)
[2024-06-10 06:29] LABS: Albumin, Blood 1.9 g/dL (3.4-5.0); Anion Gap 4 mmol/L (3-11); Blood Urea Nitrogen 25 mg/dL (8-24); Bun/Creatinine Ratio 41.5 (12.0-20.0); CO2, Blood 43 mmol/L (21-32); Chloride, Blood 92 mmol/L (98-108); Glomerular Filtration Rate 95 (60-); Glucose, Blood 84 mg/dL (70-99); Magnesium, Blood 2.1 mg/dL (1.6-2.4); Phosphorus, Blood 3.5 mg/dL (2.5-4.9); Potassium, Blood 4.7 mmol/L (3.5-5.5); Sodium, Blood 134 mmol/L (136-145)
[2024-06-10 07:17] VITALS: BP 127/72
--- NOTE | 2024-06-10 11:15 | NUR ---
NO DISTRESS, SITTING AT EDGE OF BED, CLEARLY MAKES NEEDS KNOWN, EASILY SOB, RECOVERS QUICKLY, 4L O2 HIGH FLOW, CALL LIGHT WITH IN REACH
[2024-06-10 14:54] VITALS: BP 115/69
--- NOTE | 2024-06-10 17:01 | NUR ---
NO ACUTE CHANGES, ALERT AND OREINTED TO ALL, 4-5 L HIGHFLOW OXYGEN, CELARLY MAKES NEEDS KNOWN, PLEASANT TO CARE, FRAGILE SKIN, ECHO AND BC DONE TODAY, CALL LIGHT WITH IN REACH, WILL RELAY TO PM RN
[2024-06-10 19:12] VITALS: BP 125/80
--- NOTE | 2024-06-11 04:04 | NUR ---
SHIFT SUMMARY PT CONTINUES ON 5L VIA NC, >94%. WHEEZING LOWER LOBES PER AUSCULTATION. PT CONGESTED AND PRODUCTIVE COUGH. YANKER SUCTION BY THE BEDSIDE. PT REFUSED RT TX DURING THIS SHIFT. NO ACUTE EVENTS DURING THIS SHIFT, BED AT THE LOWEST POSITION, CALL LIGHT IN REACH.
[2024-06-11 04:08] VITALS: BP 118/78
[2024-06-11 04:51] LABS: Hemoglobin 8.9 g/dL (11.5-16.0); Mean Corpuscular HGB 29.6 pg (26.0-34.0); Mean Corpuscular HGB Conc 29.7 g/dL (31.5-36.5); Mean Corpuscular Volume 100 fL (80-100); Mean Platelet Volume 8.4 fL (9.1-12.4); Platelet Count 455 K/mm3 (150-400); RDW Coefficient Variation 14.4 % (11.7-14.2); RDW Standard Deviation 52.3 fL (35.1-46.3); Red Blood Cell Count 3.01 M/mm3 (3.80-5.20); White Blood Cell Count 9.98 K/mm3 (4.00-11.30)
[2024-06-11 05:12] LABS: Bun/Creatinine Ratio 39.9 (12.0-20.0); Calcium, Blood 8.2 mg/dL (8.5-10.1); Creatinine, Blood 0.65 mg/dL (0.40-1.00); Potassium, Blood 4.7 mmol/L (3.5-5.5)
[2024-06-11 05:16] LABS: BAND PERCENT MAN 36 % (0-8); BASOPHILS ABSOLUTE MAN 0.09 K/mm3 (0.00-0.23); BASOPHILS PERCENT MAN 1 % (0-2); EOSINOPHILS ABSOLUTE MAN 0.09 K/mm3 (0.00-0.68); EOSINOPHILS PERCENT MAN 1 % (0-6); LYMPHOCYTES ABSOLUTE MAN 0.39 K/mm3 (0.84-5.20); LYMPHOCYTES PERCENT MAN 4 % (21-46); MONOCYTES ABSOLUTE MAN 0.89 K/mm3 (0.16-1.47); MONOCYTES PERCENT MAN 9 % (4-13); NEUTROPHILS ABSOLUTE MAN 8.48 K/mm3 (1.96-9.15); SEG NEUTROPHILS PERCENT MAN 49 % (41-73); TOTAL CELLS COUNTED 100
[2024-06-11 08:11] VITALS: BP 108/59
[2024-06-11] MEDS ORDERED: PredniSONE 20 MG Tab PO SCH (09:00)
[2024-06-11 11:18] LABS: Vancomycin, Trough 15.6 ug/mL (5.0-10.0)
[2024-06-11] MEDS ORDERED: Dose Adjust by Pharmacy XX STA (12:37)
[2024-06-11 15:34] VITALS: BP 134/74
--- NOTE | 2024-06-11 17:53 | NUR ---
SHIFT SUMMARY PT TITRATED TO 4L O2 VIA NC. TOLERATING WELL AND SATING IN THE 90S AFTERWARDS. PT WORKED WITH PHYSICAL THERAPY TOMORROW. HOME O2 EVAL NEEDED TOMORROW AND PT IS A POSSIBLE DC PER DR. DAMON TODAY. NO OTHER ACUTE CHANGES IN ASSESSMENT AT THIS TIME. PT IND IN ROOM. CALL LIGHT IN REACH. DENIES OTHER NEEDS AT THIS TIME.
[2024-06-11 20:14] VITALS: BP 135/79
[2024-06-12 03:57] VITALS: BP 134/78
--- NOTE | 2024-06-12 06:27 | NUR ---
Shift Summary No acute changes. Pt remained on 4L O2 NC t/o the night. She slept well without any events. She would occasionally check her own O2 which was always above 92%, usually around 94%. AOx4, independent in the room.
[2024-06-12 07:23] VITALS: BP 139/87
[2024-06-12] MEDS ORDERED: IPRAT-ALBUT 0.5-3 ML INH (15:46)
[2024-06-12] MEDS ORDERED: LOSA50 PO (15:48)
--- NOTE | 2024-06-12 17:24 | NUR ---
DISCHARGE PT & DAUGHTER EDUCATED ON NEW MEDICATIONS, FOLLOW UP APPOINTMENTS NEEDED, AND NEW O2 REQUREMENTS. BOTH STATE THEY HAVE NO FURTHER QUESTIONS AT THIS TIME. IV REMOVED & INTACT. O2 TANK DELIVERED FROM [facility]. NO CHANGES IN ASSESSMENT PRIOR TO DC. PT WHEELED OUT BY RN AND DRIVEN HOME BY DAUGHTER.
[2024-06-14] MEDS ORDERED: PredniSONE 10 MG Tab PO SCH (09:00)
== END 2024-06-12 16:55 | disposition home health service (06) | DRG 177 ==
LOC: ER 13:57 → PCU 16:57 → ER 16:57 → MEDS 16:57 → ERHOLD 16:57 → PCU 05-28 09:56 → MEDS 05-29 21:34 → ENPENDDIS 06-12 14:55 → MEDS 06-12 16:55
PROVIDERS: Emergency Medicine; Family Medicine; Internal Medicine; ADMIT Internal Medicine
PROC: 5A0935A Assistance with Respiratory Ventilation, Less than 24 Consecutive Hours, High Flow/Velocity Cannula (ICD-10-PCS; 2024-05-28)
PROC: 4A033R1 Measurement of Arterial Saturation, Peripheral, Percutaneous Approach (ICD-10-PCS; 2024-06-01)
PROC: 5A09357 Assistance with Respiratory Ventilation, Less than 24 Consecutive Hours, Continuous Positive Airway Pressure (ICD-10-PCS; principal; 2024-06-02)
DX: J15.212 Pneumonia due to Methicillin resistant Staphylococcus aureus (principal); I50.43 Acute on chronic combined systolic (congestive) and diastolic (congestive) heart failure; J96.21 Acute and chronic respiratory failure with hypoxia; J44.0 Chronic obstructive pulmonary disease with (acute) lower respiratory infection; J44.1 Chronic obstructive pulmonary disease with (acute) exacerbation; R64 Cachexia; I08.2 Rheumatic disorders of both aortic and tricuspid valves; I27.20 Pulmonary hypertension, unspecified; I11.0 Hypertensive heart disease with heart failure; J43.9 Emphysema, unspecified; E78.00 Pure hypercholesterolemia, unspecified; Z99.81 Dependence on supplemental oxygen; Z87.891 Personal history of nicotine dependence; Z86.16 Personal history of COVID-19; Z79.51 Long term (current) use of inhaled steroids; Z79.899 Other long term (current) drug therapy; Z71.6 Tobacco abuse counseling; Z68.20 Body mass index [BMI] 20.0-20.9, adult
CPT/HCPCS: 36415; 36600; 71045; 80048; 80053; 80069; 80202; 82565; 82803; 83735; 83880; 84145; 84484; 85025; 87040; 87077; 87147; 87186; 93005; 93010; 93308; 93321; 94640; 94644; 94660; 94664; 94760; 94761; 94762; 96365; 96367; 96375; 97110; 97110-CQ; 97116; 97116-CQ; 97162; 97166; 97530; 97535; 99285-25; A9270; J0456; J0696; J1650; J1940; J2543; J2919; J3370; J7050; J7512

== ENCOUNTER → 2024-08-09 | Outpatient (CLI) | payer OTHER ==
[~2024-08-09] MED LIST changes: +IPRAT-ALBUT 0.5-3 ML INH; +LOSA50 PO; +Prednisone10 MG
== END ==
LOC: LAB SHORT 17:44 → LAB 17:44
DX: R35.0 Frequency of micturition (principal)
CPT/HCPCS: 87077; 87086; 87186

== ENCOUNTER 2025-06-23 14:49 | Emergency (ER) | payer OTHER ==
[~2025-06-23] VITALS: Ht 165.1 cm; Wt 46.7 kg
[2025-06-23] MEDS ORDERED: Ipratropium/Albuterol SulF 2.5-0.5MG/3 ML Amp INH ONE (15:10)
[2025-06-23 15:24] LABS: BASOPHILS ABSOLUTE AUTO 0.05 K/mm3 (0.00-0.23); BASOPHILS PERCENT AUTO 1 % (0-2); EOSINOPHILS ABSOLUTE AUTO 0.63 K/mm3 (0.00-0.68); EOSINOPHILS PERCENT AUTO 9 % (0-6); Hematocrit 36.3 % (33.0-51.0); Hemoglobin 10.8 g/dL (11.5-16.0); IMMATURE GRAN ABSOLUTE AUTO 0.02 K/mm3 (0.00-0.10); IMMATURE GRAN PERCENT AUTO 0 % (0-1); LYMPHOCYTES ABSOLUTE AUTO 1.17 K/mm3 (0.84-5.20); LYMPHOCYTES PERCENT AUTO 18 % (21-46); MONOCYTES ABSOLUTE AUTO 0.52 K/mm3 (0.16-1.47); MONOCYTES PERCENT AUTO 8 % (4-13); Mean Corpuscular HGB Conc 29.8 g/dL (31.5-36.5); Mean Corpuscular Volume 98 fL (80-100); NEUTROPHILS ABSOLUTE AUTO 4.28 K/mm3 (1.96-9.15); NEUTROPHILS PERCENT AUTO 64 % (41-73); NRBC ABSOLUTE 0.00 K/mm3 (0.00-0.02); NRBC Auto 0.0 /100 WBC (0.0-0.2); Platelet Count 249 K/mm3 (150-400); RDW Coefficient Variation 13.5 % (11.7-14.2); RDW Standard Deviation 48.5 fL (35.1-46.3)
[2025-06-23 15:51] LABS: Alanine Aminotransfer (ALT/SGP 18.0 U/L (12-78); Albumin, Blood 3.4 g/dL (3.4-5.0); Albumin/Globulin Ratio 0.9 (0.8-1.8); Anion Gap 5.0 mmol/L (3-11); Aspartate Aminotrans (AST/SGOT 18.0 U/L (12-37); Bilirubin, Total 0.3 mg/dL (0.1-1.0); Blood Urea Nitrogen 18.0 mg/dL (8-24); CO2, Blood 36.0 mmol/L (21-32); Calcium, Blood 8.8 mg/dL (8.5-10.1); Chloride, Blood 102.0 mmol/L (98-108); Creatinine, Blood 0.81 mg/dL (0.40-1.00); Globulin, Blood 3.6 g/dL (2.2-4.0); Glucose, Blood 105.0 mg/dL (70-99); Magnesium, Blood 2.0 mg/dL (1.6-2.4); Potassium, Blood 4.5 mmol/L (3.5-5.5); Sodium, Blood 138.0 mmol/L (136-145); Total Protein, Blood 7.0 g/dL (6.4-8.2)
[2025-06-23] MEDS ORDERED: PRED20 PO (18:35)
[2025-06-23 18:43] VITALS: BP 153/96
== END 2025-06-23 18:55 | disposition home or self-care (01) ==
LOC: ER 14:49
PROVIDERS: Student in an Organized Health Care Education/Training Program
DX: J44.1 Chronic obstructive pulmonary disease with (acute) exacerbation (principal); I10 Essential (primary) hypertension; Z79.899 Other long term (current) drug therapy; F17.210 Nicotine dependence, cigarettes, uncomplicated
CPT/HCPCS: 71046; 80053; 83735; 83880; 84484; 85025; 93005; 93010; 96374; 99285-25; A9270; J2919

== ENCOUNTER 2025-07-27 11:39 | Inpatient (IN) | payer OTHER ==
[~2025-07-27] VITALS: Ht 165.1 cm; Wt 49.2 kg
[2025-07-27 12:31] LABS: pH Blood Venous 7.18 (7.34-7.37)
[2025-07-27 12:41] LABS: BASOPHILS ABSOLUTE AUTO 0.04 K/mm3 (0.00-0.23); BASOPHILS PERCENT AUTO 1 % (0-2); EOSINOPHILS ABSOLUTE AUTO 0.15 K/mm3 (0.00-0.68); EOSINOPHILS PERCENT AUTO 2 % (0-6); Hematocrit 38.4 % (33.0-51.0); Hemoglobin 11.2 g/dL (11.5-16.0); IMMATURE GRAN ABSOLUTE AUTO 0.07 K/mm3 (0.00-0.10); IMMATURE GRAN PERCENT AUTO 1 % (0-1); LYMPHOCYTES ABSOLUTE AUTO 1.02 K/mm3 (0.84-5.20); LYMPHOCYTES PERCENT AUTO 15 % (21-46); MONOCYTES ABSOLUTE AUTO 0.41 K/mm3 (0.16-1.47); MONOCYTES PERCENT AUTO 6 % (4-13); Mean Corpuscular HGB Conc 29.2 g/dL (31.5-36.5); Mean Corpuscular Volume 99 fL (80-100); NEUTROPHILS ABSOLUTE AUTO 4.95 K/mm3 (1.96-9.15); NEUTROPHILS PERCENT AUTO 74 % (41-73); NRBC ABSOLUTE 0.00 K/mm3 (0.00-0.02); NRBC Auto 0.0 /100 WBC (0.0-0.2); Platelet Count 319 K/mm3 (150-400); RDW Coefficient Variation 13.5 % (11.7-14.2); RDW Standard Deviation 49.7 fL (35.1-46.3)
[2025-07-27] MEDS ORDERED: Albuterol 2.5 MG/3 ML VIAL INH SCH (12:55)
[2025-07-27 12:58] LABS: Anion Gap 5.0 mmol/L (3-11); Blood Urea Nitrogen 23.0 mg/dL (8-24); CO2, Blood 36.0 mmol/L (21-32); Calcium, Blood 9.3 mg/dL (8.5-10.1); Chloride, Blood 104.0 mmol/L (98-108); Creatinine, Blood 0.89 mg/dL (0.40-1.00); Glucose, Blood 130.0 mg/dL (70-99); Potassium, Blood 5.1 mmol/L (3.5-5.5); Sodium, Blood 140.0 mmol/L (136-145)
[2025-07-27 13:28] LABS: Influenza A, PCR NEGATIVE (NEGATIVE); Influenza B, PCR NEGATIVE (NEGATIVE); Resp Syncytial Virus, PCR NEGATIVE (NEGATIVE); SARS-Cov-2 (COVID-19) PCR, MMC NEGATIVE (NEGATIVE)
[2025-07-27 13:57] LABS: pH Blood Venous 7.20 (7.34-7.37)
[2025-07-27] MEDS ORDERED: FLU VACC TS2025(65UP)/MF59C/PF 45 MCG/0.5 ML SYRINGE IM SCH (15:10)
--- NOTE | 2025-07-27 16:24 | NUR ---
ARRIVAL NOTE: PATIENT ARRIVES TO UNIT AND IS ORIENTED TO THE ROOM AND CALL LIGHT. VITAL SIGNS STABLE & PATIENT HAS BIPAP ON WITH RT IN THE ROOM. PATIENT HAS CALL LIGHT WITHIN REACH, BED IN LOWEST LOCKED POSITION & STATING NOTHING ELSE IS NEEDED AT THIS TIME.
[2025-07-27 16:26] VITALS: BP 118/81
--- NOTE | 2025-07-27 17:15 | NUR ---
SHIFT SUMMARY: PATIENT IS ALERT AND ORIENTED X4 & COOPERATIVE WITH HER CARE, IS ABLE TO MAKE NEEDS KNOWN & USES CALL LIGHT APPRORIATELY. SATTING >92% ON BIPAP UPON ARRIVAL, MADE THE SWITCH TO NASAL CANNULA AT 2 LITERS WHICH IS PATIENTS BASLEINE TO EAT DINNER. PATIENT HOME MEDICATION WAS DONE TO WHAT THE PAITENT STATES SHE TAKES, AND MD TO ROUND SHORTLY. PATIENT NOTIFIED FAMILY UPON ARRIVAL. PUREWICK WAS PLACED DUE TO 02 DEMAND & PATIENT ORIENTED TO ROOM & CALL LIGHT SYSTEM. PATIENT EATING DINNER,CALL LIGHT WITHIN REACH, BED IN LOWEST LOCKED POSITION STATING NOTHIGNE ELSE IS NEEDED
--- NOTE | 2025-07-27 17:37 | NUR ---
ROUNDED: ROUNDED AND SPOKE WIHT PATIENT REGARDING WANTING HER TO WEAR THE BIPAP MUCH POSSIBLE. PATIENT AGREEABLE, FINISHING DINNER AND TO BE PLACED BACK ON.
[2025-07-27] MEDS ORDERED: Budesonide 1 MG/2 ML RESP INH SCH (17:55)
[2025-07-27 19:10] LABS: pH Blood Venous 7.33 (7.34-7.37)
[2025-07-27 19:17] VITALS: BP 112/58
[2025-07-27] MEDS ORDERED: Ipratropium/Albuterol SulF 2.5-0.5MG/3 ML Amp INH SCH (19:30)
[2025-07-27] MEDS ORDERED: Albuterol 2.5 MG/3 ML VIAL INH PRN (19:30)
[2025-07-27 23:28] VITALS: BP 121/77
[2025-07-28 03:17] VITALS: BP 110/81
[2025-07-28 04:03] LABS: BASOPHILS ABSOLUTE AUTO 0.00 K/mm3 (0.00-0.23); BASOPHILS PERCENT AUTO 0 % (0-2); EOSINOPHILS ABSOLUTE AUTO 0.01 K/mm3 (0.00-0.68); EOSINOPHILS PERCENT AUTO 0 % (0-6); Hematocrit 34.1 % (33.0-51.0); Hemoglobin 10.2 g/dL (11.5-16.0); IMMATURE GRAN ABSOLUTE AUTO 0.05 K/mm3 (0.00-0.10); IMMATURE GRAN PERCENT AUTO 1 % (0-1); LYMPHOCYTES ABSOLUTE AUTO 0.42 K/mm3 (0.84-5.20); LYMPHOCYTES PERCENT AUTO 8 % (21-46); MONOCYTES ABSOLUTE AUTO 0.06 K/mm3 (0.16-1.47); MONOCYTES PERCENT AUTO 1 % (4-13); Mean Corpuscular HGB Conc 29.9 g/dL (31.5-36.5); Mean Corpuscular Volume 96 fL (80-100); NEUTROPHILS ABSOLUTE AUTO 4.77 K/mm3 (1.96-9.15); NEUTROPHILS PERCENT AUTO 90 % (41-73); NRBC ABSOLUTE 0.00 K/mm3 (0.00-0.02); NRBC Auto 0.0 /100 WBC (0.0-0.2); Platelet Count 327 K/mm3 (150-400); RDW Coefficient Variation 13.3 % (11.7-14.2); RDW Standard Deviation 47.2 fL (35.1-46.3)
[2025-07-28 04:28] LABS: Anion Gap 5.0 mmol/L (3-11); Blood Urea Nitrogen 28.0 mg/dL (8-24); CO2, Blood 36.0 mmol/L (21-32); Calcium, Blood 9.2 mg/dL (8.5-10.1); Chloride, Blood 99.0 mmol/L (98-108); Creatinine, Blood 0.96 mg/dL (0.40-1.00); Glucose, Blood 112.0 mg/dL (70-99); Potassium, Blood 4.9 mmol/L (3.5-5.5); Sodium, Blood 135.0 mmol/L (136-145)
--- NOTE | 2025-07-28 06:45 | NUR ---
SHIFT SUMMARY: PT IS A&OX4 CALM AND COOPERATIVE. ABLE TO FOLLOW COMMANDS AND CALLS APPROPRIATELY. VSS ON BIPAP MOST OF NIGHT SATTING >90%. PT TAKEN OFF BIPAP TO EAT/DRINK AND USE BSC AND MAINTAINED >90% ON 6L HNC. SBA TO BSC. PT HAD 500ML UO BUT REPORTED SHE STILL FEELS SHE HAS TO GO TO THE BATHROOM. NOTED TO HAVE BLOOD WHEN WIPING AND INGUINAL HERNIA. BLADDER SCAN COMPLETED. NOTIFIED PROVIDER AND PROVIDER ORDERED UA TO BE COLLECTED. PT TOLERATING DIET. REPOSTITIONS SELF IN BED. BED IS LOW AND LOCKED. CALL LIGHT WITHIN REACH. CONTINUE WITH CURRENT PLAN OF CARE AND COLLECT UA WHEN PT VOIDS.
--- NOTE | 2025-07-28 07:25 | NUR ---
ASSUMPTION NOTE: THIS RN TO ASSUME CARE OF PATIENT.PATIENT IS ALERT AND ORIETNED X4 & ON THE NASAL CANNULA SATTING >92% ON 4 LITERS. PATIENT ASKED TO STAY OFF FOR A WHILE SHE'S COUGHING UP PHLEM AND FELT LIKE THE BIPAP WAS SUFFOCATING HER WHILE SHE'S COUGHING. PATIENT HAS BED IN LOWEST LOCKED POSITION & STATING NOTHING ELSE IS NEEDED AT THIS TIME,CALL LIGHT WITHIN REACH.
[2025-07-28 07:35] VITALS: BP 135/91
[2025-07-28] MEDS ORDERED: Enoxaparin 40 MG/0.4 ML SYR SC SCH (09:00)
--- NOTE | 2025-07-28 10:37 | NUR ---
MD ROUNDED: MD ROUNDED AND PATIENT CHATTED ABOUT NUMBERS IMPROVING WITH THE BIPAP AND PATIENT OK TO ONLY WEAR NASAL CANNULA. PATIENT REPORTED ABOUT VAGINAL BLEEDING OCCASINALLY AND MD TO ORDER AN ABDOMINAL ULTRASOUND & POSSIBLY AN ECHO. FLUTTER VALVE ORDER WAS PLACED AND THIS RN TO BRING TO PATIENT.
[2025-07-28 11:08] LABS: Source, Urine Clean Catch
[2025-07-28 11:14] VITALS: BP 150/79
[2025-07-28 11:15] LABS: Bilirubin, Urine Neg (Neg); Color, Urine Amber (P-Yellow); Glucose Qualitative, Urine Neg (Neg); Ketones, Urine Neg (Neg); Leukocyte Esterase, Urine Neg (Neg); Protein, Urine 4+ (Neg); Specific Gravity, Urine 1.020 (1.003-1.022); Urobilinogen, Urine NORM (Normal)
[2025-07-28 11:21] LABS: Red Blood Cells, Urine 50-100 /hpf (0-2); White Blood Cells, Urine 0-2 /hpf (0-5)
[2025-07-28 13:45] LABS: pH Blood Venous 7.38 (7.34-7.37)
[2025-07-28 15:15] VITALS: BP 152/95
--- NOTE | 2025-07-28 17:55 | NUR ---
SHIFT SUMMARY: PATIENT IS ALERT AND ORIENTED X4 & COOPERATIVE WITH HER CARE, IS ABLE TO MAKE NEEDS KNOWN & USES CALL LIGHT APPRORIATELY. SATTING >92% ON 3 LITERS VIA NASAL CANNULA MOST OF THE DAY, OCCASINALLY INCREASED TO 5 LITERS WHEN TRANSFERRIING TO BEDSIDE COMMODE AND BACK TO BED. ON TELE SHOWING SINUS RYTHM WITH RATE 80-90'S. PATIENT HAD AN ULTRASOUND DOWN TODAY FOR VAGINAL BLEEDING. PATIENT AWARE THAT MOST LIKELY ONE TO TWO MORE DAYS UNTIL DISCHARGE. PATIENT CURRENTLY SITTING IN BED,EATING DINNER CALL LIGHT WITHIN REACH & STATING NOTHING ELSE IS NEEDED AT THIS TIME.
[2025-07-28 20:20] VITALS: BP 147/76
[2025-07-28 23:39] VITALS: BP 147/89
[2025-07-29 03:36] VITALS: BP 147/86
[2025-07-29 03:54] LABS: Hematocrit 30.3 % (33.0-51.0); Hemoglobin 9.6 g/dL (11.5-16.0); Mean Corpuscular HGB Conc 31.7 g/dL (31.5-36.5); Mean Corpuscular Volume 92 fL (80-100); NRBC ABSOLUTE 0.00 K/mm3 (0.00-0.02); NRBC Auto 0.0 /100 WBC (0.0-0.2); Platelet Count 332 K/mm3 (150-400); RDW Coefficient Variation 13.4 % (11.7-14.2); RDW Standard Deviation 45.8 fL (35.1-46.3)
[2025-07-29 04:17] LABS: Anion Gap 6.0 mmol/L (3-11); Blood Urea Nitrogen 45.0 mg/dL (8-24); CO2, Blood 32.0 mmol/L (21-32); Calcium, Blood 8.6 mg/dL (8.5-10.1); Chloride, Blood 99.0 mmol/L (98-108); Creatinine, Blood 1.06 mg/dL (0.40-1.00); Glucose, Blood 138.0 mg/dL (70-99); Potassium, Blood 5.2 mmol/L (3.5-5.5); Sodium, Blood 132.0 mmol/L (136-145)
[2025-07-29 04:32] LABS: BAND PERCENT MAN 35 % (0-8); BASOPHILS ABSOLUTE MAN 0.00 K/mm3 (0.00-0.23); BASOPHILS PERCENT MAN 0 % (0-2); EOSINOPHILS ABSOLUTE MAN 0.00 K/mm3 (0.00-0.68); EOSINOPHILS PERCENT MAN 0 % (0-6); LYMPHOCYTES ABSOLUTE MAN 0.37 K/mm3 (0.84-5.20); LYMPHOCYTES PERCENT MAN 4 % (21-46); MONOCYTES ABSOLUTE MAN 0.28 K/mm3 (0.16-1.47); MONOCYTES PERCENT MAN 3 % (4-13); MYELOCYTE ABSOLUTE MAN 0.09 K/mm3 (0.00-0.00); MYELOCYTE PERCENT MAN 1 % (0-0); NEUTROPHILS ABSOLUTE MAN 8.68 K/mm3 (1.96-9.15); SEG NEUTROPHILS PERCENT MAN 57 % (41-73)
--- NOTE | 2025-07-29 06:25 | NUR ---
SHIFT SUMMARY PT IS A&O X4, ABLE TO MAKE NEEDS KNOWN, MOVING ALL EXTREMITIES WITH PURPOSE, OBEYS COMMANDS, REPOSITIONING SELF IN BED, CALLS APPROPRIATELY. CONTINUOUS SPO2, SPO2 GREATER THAN 88% ON 4L 02 VIA NC, PT DESATURATES WITH ACTIVITY TO MID 70 S% AND RECOVERS WITH BREATHING TECHNIQUES, LUNGS SOUND CLEAR WITH FINECRACKLES IN BASES, NO SIGNS OF RESPIRATORY DISTRESS NOTED. CONTINUOUS TELE MONITORING, SINUS 90 S, BP STABLE WITH MAP GREATER THAN 65, CAP REFILL WNL, PULSES PRESENT T/O, DENIES CHEST P/P T/O THIS SHIFT. BOWEL TONES PRESENT IN ALL 4Q. VOIDING IND, URINE YELLOW IN COLOR SMALL AMOUNT OF VAGINAL BLEEDING T/O THIS SHIFT BED LOWEST POSITION, CALL LIGHT IN REACH, AWAITING TO GIVE REPORT TO ONCOMING RN.
[2025-07-29 08:07] VITALS: BP 163/93
[2025-07-29] MEDS ORDERED: Furosemide 10 MG / ML 2ML Vial IV SCH (10:00)
[2025-07-29 12:02] VITALS: BP 134/81
--- NOTE | 2025-07-29 13:15 | NUR ---
[facility] care visit conducted. The patient's family is known to me from prior hospitalizations. The patient tells me about her desire to go home and her frustrations of having more hospital stays than she would prefer. She catches me up on the family happenings and talks at length about her 3 dtrs and 6 grandkids and 1 great granddaughter. She talks about her life, the different places she has lived and gratitude that she has for her family. I provided therapeutic listening and a calmiong presence. THe patient voices appreciation and asks if I could visit again tomorrow if she is still housed ing the hospital.
[2025-07-29] MEDS ORDERED: JARDIANCE25 MG PO (14:45)
[2025-07-29] MEDS ORDERED: GABA300 PO (14:45)
[2025-07-29] MEDS ORDERED: NORT75 PO (14:46)
[2025-07-29] MEDS ORDERED: XARELTO20 MG PO (14:47)
[2025-07-29] MEDS ORDERED: VENL75ER PO (14:47)
[2025-07-29 16:30] VITALS: BP 141/76
--- NOTE | 2025-07-29 17:25 | NUR ---
SHIFT SUMMARY; ASSUMED CARE AT 0700, A/A/OX4, 3L VIA NC, HX OF HOME 02 2L. SATS 90-91% AT REST, AMBULATES TO RESTROOM WITH FWW AND STEADY GAIT, SATS DECREASED TO 78% WITH AMBULATION. RECOVERS TO BASELINE AFTER A COUPLE MINUTES. HR STABLE, BP STABLE. STATUS CHANGED TO MEDICAL TODAY, NO ACUTE CHANGES, WILL CONTINUE TO MONITOR AND TREAT UNTIL REPORT GIVEN TO NOC SHIFT RN.
[2025-07-29 19:47] VITALS: BP 145/87
[2025-07-30 00:03] VITALS: BP 140/88
--- NOTE | 2025-07-30 00:37 | NUR ---
@0020 REPORT RECEIVED FROM CLINICAL LEADERBLANCA PADGETT. @0030 PT ARRIVED IN A W/C TO THE MEDICAL FLOOR. PT TRANSFERRED INDEPENDENTLY TO THE HOSPITAL BED. PT USES FWW AND IS SBA WHEN AMBULATING. PT BROUGHT ALL HER BELONINGS WITH HER. ORIENTED TO CALL LIGHT AND EDUCATED ON FALL PRECAUTIONS. NON-SLIP SOCKS ON, BED AT THE LOWEST POSITION, CALL LIGHT W/I REACH. PT IS A/OX4, ABLE TO MAKE HER NEEDS KNOWN AND COOPERATIVE WITH CARE. O2 @L VIA HIGH FLOW NC. O2 SAT'S MID 90'S AT REST. O2 SAT'S HIGH 80'S WHEN AMBULATING. PT RECOVERS QUICKLY BACK TO MID 90'S AFTER AMBULATION.
--- NOTE | 2025-07-30 02:00 | NUR ---
SHIFT SUMMARY: PT IS A&OX4, PLEASANT AND COOPERATIVE WITH CARE. VSS ON 3L VIA HFNC SATS >93%, DESATS TO THE LOW 80'S WITH EXERTION. SR-ST 90'S-110'S. DENIES PAIN. TOLERATING A HEART HEALTHY DIET WITH GOOD APPETITE. SBA WITH FWW FOR LINE MANAGEMENT TO BR. VOIDING ADEQUATE AMOUNTS OF CLEAR, PALE YELLOW URINE. NO BM THIS SHIFT. BED IN LOWEST POSITION, CALL LIGHT WITHIN REACH. CALLS APPROPRIATELY AND IS ABLE TO ADVOCATE NEEDS EFFECTIVELY. CALLED REPORT TO RUPERTO Pal ON MEDICAL FLOOR AT 0025. CAT TENDER TRANSFERRED PT TO ROOM 327 VIA WHEELCHAIR WITH ALL BELONGINGS IN HER POSSESSION.
[2025-07-30 04:30] VITALS: BP 162/88
[2025-07-30 07:34] VITALS: BP 156/99
[2025-07-30] MEDS ORDERED: BREZTRI AEROS10.7 GM INH (09:49)
[2025-07-30] MEDS ORDERED: IPRAT-ALBUT 0.5-3 ML INH ×2 (09:50→13:44)
[2025-07-30 11:06] VITALS: BP 159/82
[2025-07-30] MEDS ORDERED: FURO20 PO (13:43)
[2025-07-30] MEDS ORDERED: AZIT500 PO (13:43)
[2025-07-30] MEDS ORDERED: LOSA50 PO (13:44)
[2025-07-30] MEDS ORDERED: Prednisone10 MG PO (13:46)
--- NOTE | 2025-07-30 14:45 | NUR ---
Patient is sitting up in bed and in street clothes. She states that she forgot to tell her family to bring the oxygen tank that she needs to ride home with. She talks about her family and about how excited she is to DC from the hospital (although she states the the care has been wonderful). I provided therapeutic listening and a calming presence. The pateint voiced appreciation for the visit.
[2025-07-30 15:45] VITALS: BP 141/81
--- NOTE | 2025-07-30 16:43 | NUR ---
DISCHARGE PT DISCHARGED HOME WITH SON. EDUCATION PROVIDED, ALL QUESTIONS ANSWERED. BELONGINGS WITH PT.
== END 2025-07-30 16:45 | disposition home or self-care (01) | DRG 189 ==
LOC: ER 11:39 → PCU 15:05 → MEDS 07-30 00:28
PROVIDERS: Emergency Medicine; Student in an Organized Health Care Education/Training Program; ADMIT Family Medicine
PROC: 5A09357 Assistance with Respiratory Ventilation, Less than 24 Consecutive Hours, Continuous Positive Airway Pressure (ICD-10-PCS; principal; 2025-07-27)
PROC: 5A0935A Assistance with Respiratory Ventilation, Less than 24 Consecutive Hours, High Flow/Velocity Cannula (ICD-10-PCS; 2025-07-27)
DX: J96.21 Acute and chronic respiratory failure with hypoxia (principal); J44.1 Chronic obstructive pulmonary disease with (acute) exacerbation; E87.1 Hypo-osmolality and hyponatremia; I11.0 Hypertensive heart disease with heart failure; J96.22 Acute and chronic respiratory failure with hypercapnia; J44.9 Chronic obstructive pulmonary disease, unspecified; I50.9 Heart failure, unspecified; D64.9 Anemia, unspecified; J20.9 Acute bronchitis, unspecified; I35.1 Nonrheumatic aortic (valve) insufficiency; I45.10 Unspecified right bundle-branch block; Z79.51 Long term (current) use of inhaled steroids; Z79.52 Long term (current) use of systemic steroids; Z79.899 Other long term (current) drug therapy; Z99.81 Dependence on supplemental oxygen
CPT/HCPCS: 36415; 71045; 76830; 76856; 80048; 81001; 82803; 83880; 84484; 85025; 87637; 93005; 93010; 93306; 94640; 94644; 94660; 94664; 94762; 97165; 97535; 99285-25; A9270; J1650; J1938; J2919; J7626